=== PATIENT | male | born 2005 | race Caucasian/White ===

== ENCOUNTER 2025-07-04 21:31 | Emergency (ER) | payer BC, SELFPAY ==
[2025-07-04] VITALS (18 sets, daily range): BP systolic 142; BP diastolic 86; PULSE 82; RESP 18; TEMP 37.4; O2SAT 97–99; BMI 22.0
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
--- OUTSIDE RECORDS SUMMARY | 2025-07-04 22:24 | XMS_ITS | Encounter Summary ---
Author Organization [facility] Address [address] [place] [address] Care Team Providers Care Weights And Measures Inspector Name Role Phone Quang Neville MD Primary Care Provider [phone] Encounter Details Date Type Department Care Team (Late st Contact Info) Description 10/20/2017 [facility] Conversion Encounter [facility] CONVERSION Moiz Gregory MD Social History Tobacco Use Types Packs/Day Years Used Date Smoking Tobacco: Never Assessed Sex and Gender Information Value Date Recorded Sex Assigned at Male 09/24/2022 4:59 PM ELECTRONICS REPAIR TECHNICIAN Legal Sex Male 4:59 PM ELECTRONICS REPAIR TECHNICIAN Gender Identity Not on file Sexual Orientation Not on file documented as of this encounter Progress Notes * Moiz Gregory MD - 10/20/2017 3:51 PM EST [facility] [address] [place] [facility] [place] [address] PEDIATRICS * Patient: Yaya Maggie Pisano MR#: [id number] Date of Visit: 10/20/2017 3:15 PM : 2005 Visit Type: Office Visit Age: 12 years 1 month Rendering Physician: Moiz Gregory MD Gender: Male Primary Care Provider: Quang Neville MD Historian: mother Assessment/Plan # Detail Type Description 1. Assessment Injury of toe on left foot, initial encounter (S99.922A), Acute. Provider Plan Assume it's broken & avoid anything that would cause further injury. Don't walk around barefoot. If it's a fracture, it's not likely to feel much better for at least 1wk. If mom decides she wants an X-ray, call & tell us why. Call sooner if it looks like it's getting worse/infected. Intake Comments Injured L. second toe 10/19. Bruised, swollen and tender the touch,. 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 Injured L. 2nd toe 10/19 running in socks to door & smashed it on door jam. Played on it all day& then hurt later in the day. Started looking worse last night. Swollen & tender to the touch w/ ecchymosis. Physical Exam Exam Findings Details Constitutional Normal No acute distress. Well nourished. Well developed. Medications Patient is on no medications. Allergies No known allergies. Scribe Signature and Attestation By signing my name below, I, Devante Hall, attest that this documentation has been prepared under the direction and in the presence of Moiz Gregory MD. Electronically Signed: Devante Arcosibbret. 10/20/2017. 3:51 PM. Provider Attestation IMoiz MD, personally performed the services described in this documentation. All medical record entries made by the scribe were at my direction and in my presence. I have reviewed the chart and discharge instructions and agree that the record reflects my personal performance and is accurate and complete. TRONICS REPAIR TECHNICIAN TRONICS REPAIR TECHNICIAN documented in this encounter Plan of Treatment Not on file documented as of this encounter Visit Diagnoses Not on filedocumented in this encounter Care Teams Weights And Measures Inspector Relationship Specialty Start Date End Date Quang Neville MD [address] [place] [id number] PCP - General Pediatrics 11/10/22 documented as of this encounter
--- OUTSIDE RECORDS SUMMARY | 2025-07-04 22:24 | XMS_ITS | Encounter Summary ---
Author Organization [facility] Address [address] [place] [address] Care Team Providers Care Operator And Truck Driver Name Role Phone Quang Neville MD Primary Care Provider [phone] Encounter Details Date Type Department Care Team (Late st Contact Info) Description 05/19/2025 Orders Only Pediatrics - [address] [facility] [address] [facility] [place] [place] [address] Te Sales PA-C [address] [facility] [place] [place] [address] Fever, unspecified fever cause Social History Tobacco Use Types Packs/Day Years Used Date Smoking Tobacco: Never Smokeless Tobacco: Never Alcohol Use Standard Drinks/Week Comments Never 0 (1 standard drink = 0.6 oz pur e alcohol) PHQ-2 Answer Date Recorded PHQ-2 SCORE 0 01/05/2023 Sex and Gender Information Value Date Recorded Sex Assigned at Male 09/24/2022 4:59 PM DIRECTOR OF PHYSIOTHERAPY SERVICES Legal Sex Male 4:59 PM DIRECTOR OF PHYSIOTHERAPY SERVICES Gender Identity Not on file Sexual Orientation Not on file documented as of this encounter Plan of Treatment Not on file documented as of this encounter Procedures Procedure Name Priority Date/Time Associated Diagnosis Comments RESPIRATORY PANEL BY PCR Routine 05/19/2025 3:35 PM EDT Fever, unspecified fever cause documented in this encounter Results * (ABNORMAL) RESPIRATORY PANEL BY PCR (05/19/2025 3:35 PM EDT) Source: Nasopharyngeal swab 05/20/2025 1:48 AM EDT [facility] Adenovirus NOT DETECTED 05/20/2025 1:48 AM EDT [facility] SARS COV2 NOT DETECTED 05/20/2025 1:48 AM EDT [facility] Coronavirus 229E NOT DETECTED 2024 1:48 AM EDT [facility] Coronavirus HKU1 NOT DETECTED 2024 1:48 AM EDT [facility] Coronavirus NL63 NOT DETECTED 2024 1:48 AM EDT [facility] Coronavirus OC43 NOT DETECTED 2024 1:48 AM EDT [facility] Human Metapneumovirus NOT DETECTED 05/20/2025 1:48 AM EDT [facility] Human Rhino/Enterovirus DETECTED(A) 05/20/2025 1:48 AM EDT [facility] Influenza A NOT DETECTED 05/20/2025 1:48 AM EDT [facility] Influenza B NOT DETECTED 05/20/2025 1:48 AM EDT [facility] Parainfluenza 1 NOT DETECTED 025 1:48 AM EDT [facility] Parainfluenza 2 NOT DETECTED 025 1:48 AM EDT [facility] Parainfluenza 3 NOT DETECTED 025 1:48 AM EDT [facility] Parainfluenza 4 NOT DETECTED 025 1:48 AM EDT [facility] RSV NOT DETECTED 05/20/2025 1:48 AM EDT [facility] Bordetella pertussis NOT DETECTED 05/20/2025 1:48 AM EDT [facility] Bordetella parapertussis NOT DETECTED 05/20/2025 1:48 AM EDT [facility] Chlamydophilia pneumonia NOT DETECTED 05/20/2025 1:48 AM EDT [facility] Mycoplasma pneumoniae NOT DETECTED 05/20/2025 1:48 AM EDT [facility] Comment: Testing is performed using the [employer] FimArray Respiratory Panel 2.1. This assay has been granted [place] authorization by the U.S. Food and Drug Administration (FDA) for simultaneous qualitative detection and differentiation of nucleic acids from multiple respiratory and bacterial organisms, including the SARS-CoV-2 virus. Negative result do not preclude infection and should not be used as the sole basis for patient management decisions. Negative results must be combined with clinical observations, patient history, and epidemiological information. PERFORMED BY:[employer], [id number] [place] [address] Other NASOPHARYNGEAL SWAB / Unknown 05/19/2025 3:35 PM EDT 05/19/2025 3:35 PM EDT [facility]ative [facility] 05/20/2025 1:48 AM EDT Te Sales PA-C LABORATORY Final Result [employer] [facility] [place] [address] documented in this encounter Visit Diagnoses Diagnosis Fever, unspecified fever cause documented in this encounter Care Teams Operator And Truck Driver Relationship Specialty Start Date End Date Quang Neville MD [address] [place] [address] PCP - General Pediatrics 11/10/22 documented as of this encounter
--- OUTSIDE RECORDS SUMMARY | 2025-07-04 22:24 | XMS_ITS | Encounter Summary ---
Author Organization [facility] Address [address] [place] [address] Care Team Providers Care Distributing Clerk Name Role Phone Quang Neville MD Primary Care Provider [phone] Encounter Details Date Type Department Care Team ([facility] st Contact Info) Description 05/28/2018 Duly Conversion Encounter Pediatrics - [address] [facility] [address] [facility] [address] Дмитрий Bustos NP [address] [facility] [place] [address] Social History Tobacco Use Types Packs/Day Years Used Date Smoking Tobacco: Never Assessed Sex and Gender Information Value Date Recorded Sex Assigned at Male 09/24/2022 4:59 PM 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 The following is a summary of today's visit, including instructions and other important information we hope you find helpful. Reason(s) for Today's Visit well visit. Today's Plan & Instructions Detail Type Diagnosis & Plan Assessment Encntr for routine child health exam w/o abnormal findings (Z00.129). Patient Plan Anticipatory guidance regarding physical growth and development, social and academic competence, emotional well-being, risk reduction, violence and injury prevention.. Plan Orders He is to schedule a follow-up visit with Quang Neville MD for Well child visit 1 Year Additional Instructions Patient education/instruction provided. Vitals Recorded at this Visit BP mm/Hg Pulse/min Resp/min Temp F Height (Total in.) Weight (lbs.) Weight (oz.) BMI 102/60 62.50 102.20 18.39 In office Procedures Performed at this Visit Status Order Quantity Dx Interpretation Result Details Completed Patient education/instruction provided. Appointments, Orders, & Referrals Follow-Up Appointments Follow-up Appointment follow-up visit with Quang Neville MD for Well child visit 1 Year follow-up visit with Quang Neville MD for Well child visit 1 Year Other Health Information Current Allergies Medication Name Ingredient Intolerance Reaction NO KNOWN ALLERGIES N Current Immunizations Status Immunization Date Comments Completed Human Papillomavirus 9-valent vaccine 05/28/2018 11:12:08 AM Completed MCV4 05/13/2017 4:14:23 PM Completed Tdap 05/13/2017 4:14:48 PM Completed Influenza virus vaccine, injectable, quadrivalent, split virus, preservative free, 3 years or older Fluarix, Flulaval or Fluzone Quad 09/24/2009 12:00:00 AM Completed Influenza virus vaccine, injectable, quadrivalent, split virus, preservative free, 3 years or older Fluarix, Flulaval or Fluzone Quad 08/13/2010 12:00:00 AM Completed Influenza virus vaccine, injectable, quadrivalent, split virus, preservative free, 3 years or older Fluarix, Flulaval or Fluzone Quad 08/09/2009 12:00:00 AM Completed Influenza virus vaccine, injectable, quadrivalent, split virus, preservative free, 3 years or older Fluarix, Flulaval or Fluzone Quad 07/13/2008 12:00:00 AM Completed Influenza virus vaccine, injectable, quadrivalent, split virus, preservative free, 3 years or older Fluarix, Flulaval or Fluzone Quad 07/27/2007 12:00:00 AM Completed Influenza virus vaccine, injectable, quadrivalent, split virus, preservative free, 3 years or older Fluarix, Flulaval or Fluzone Quad 09/15/2006 12:00:00 AM Completed Influenza virus vaccine, injectable, quadrivalent, split virus, preservative free, 3 years or older Fluarix, Flulaval or Fluzone Quad 07/09/2006 12:00:00 AM Completed Pneumococcal, PCV-13 09/15/2006 12:00:00 AM Completed Pneumococcal, PCV-13 03/17/2006 12:00:00 AM Completed Pneumococcal, PCV-13 01/20/2006 12:00:00 AM Completed Pneumococcal, PCV-13 2005 12:00:00 AM Completed Polio, Inactive 10/11/2009 12:00:00 AM Completed Hib (PRP-OMP) 12/15/2006 12:00:00 AM Completed Hib (PRP-OMP) 03/17/2006 12:00:00 AM Completed Hib (PRP-OMP) 01/20/2006 6:05:48 PM Completed Hib (PRP-OMP) 2005 12:00:00 AM Completed Polio, Inactive 03/16/2007 4:38:44 PM Completed Polio, Inactive 01/20/2006 12:37:48 PM Completed DTaP (younger than 7 yrs) 10/11/2009 12:00:00 AM Completed DTaP (younger than 7 yrs) 03/16/2007 12:00:00 AM Completed DTaP (younger than 7 yrs) 07/17/2006 12:00:00 AM Completed DTaP (younger than 7 yrs) 01/20/2006 12:00:00 AM Completed DTaP- hepatitis B and poliovirus 2005 12:00:00 AM Completed Hep B (ped/adol, 3 dose) 06/23/2006 12:00:00 AM Completed Hep B (ped/adol, 3 dose) 2005 12:00:00 AM Completed Hep B (ped/adol, 3 dose) 2005 12:00:00 AM Completed MMR 10/11/2009 12:00:00 AM Completed Varicella 10/11/2009 12:00:00 AM Completed MMR 12/15/2006 12:00:00 AM Completed Varicella 09/15/2006 12:00:00 AM Completed Hep A (ped/adol, 2 dose) 10/08/2013 12:00:00 AM Completed Hep A (ped/adol, 2 dose) 02/25/2013 12:00:00 AM The [facility], [facility] complies with applicable Federal civil rights laws and does not discriminate on the basis of race, color, national origin, age, disability, or sex. * Дмитрий Bustos NP - 05/28/2018 11:14 [place] [address] [email or web address] Patient: Yaya Pisano MR#: [id number] Date of Visit: 05/28/2018 11:00 AM : 2005 Visit Type: Well child Age: 12 years 8 months Rendering Physician: Дмитрий Bustos NP Gender: Male Primary Care Provider: Quang Neville MD Historian: father Assessment/Plan # Detail Type Description 1. Assessment Encntr for routine child health exam w/o abnormal findings (Z00.129). Patient Plan Anticipatory guidance regarding physical growth and development, social and academic competence, emotional well-being, risk reduction, violence and injury prevention. Plan Orders He is to schedule a follow-up visit with Quang Neville MD for Well child visit 1 Year Office Procedures Completed (this encounter) Status Order Quantity Dx Interpretation Result Details Completed Patient education/instruction provided. Immunizations Status Date Description Exp Date Lot # Workers Compensation Claims Assistant Completed 05/28/2018 Human Papillomavirus 9-valent vaccine 07/13/2020 11:11:22 AM [id number] [employer] Intake Comments: Dad has no concerns He is attending [employer] school and is in the 7th grade. History of Present Illness This 12 year 8 month old male presents for well visit. 1. well visit There are no acute concerns today. Diet: Appropriate food intake for age. 3 meals plus snacks -drinks 2% milk Sleep: Sleeping normally for age. Elimination: Having normal urine and stools. 7th grader at [employer] -plans to run [employer] Does not wear glasses Dentist every 6 months Review of Systems System Neg/Pos Details Constitutional Negative Decreased activity and fever. ENMT Negative Ear drainage and hearing loss. Eyes Negative Eye discharge and vision loss. Respiratory Negative Cough, dyspnea and wheezing. Cardio Negative Cool extremity and irregular heartbeat/palpitations. GI Negative Abdominal pain, constipation, decreased appetite, diarrhea and vomiting. Negative Dysuria, hematuria, penile discharge and polyuria. Endocrine Negative Abnormal sleep pattern and polydipsia. Psych Negative Inappropriate interaction and inconsolable. Integumentary Negative Pruritus and rash. Asif/Lymph Negative Easy bleeding and easy bruising. Allergic/Immuno Negative Environmental allergies and food allergies. Vital Signs BP (mm/hg) Pulse (min) Resp (min) Temp (F) Ht (ft) Ht (in) Ht (cm) Ht (%) Wt (lb) Wt (oz) Wt (%) BMI (kg/m2) BSA (m2) O2 (Sat%) 102/60 5.0 2.50 158.75 73 102.20 59 18.39 Date Time Measured by 05/28/2018 10:54 AM Shaylee Ramirez MA Physical Exam Exam Findings Details Back/Spine Normal Inspection - no abnormality. Lateral - No Scoliosis. Constitutional * Level of distress - pleasant. Constitutional Normal Well nourished. Well developed. Head/Face Normal Skull - Normal. Eyes Normal Conjunctiva - Right: Normal, Left: Normal. Sclera - Right: Normal, Left: Normal. Pupil - Right: Normal, Left: Normal. Ocular muscles - Right: Normal, Left: Normal. Ears Normal Inspection - Right: Normal, Left: Normal. Canal - Right: Normal, Left: Normal. TM - Right: Normal, Left: Normal. Nasopharynx Normal Nares - Right: Normal, Left: Normal. Nasal mucosa - Normal. Lips/teeth/gums - Normal. Palate & uvula - Normal. Tonsils - Normal. Oropharynx - Normal. Nose/Mouth/Throat Normal Nares - Right: Normal, Left: Normal. Nasal Mucosa - Normal. Lips/teeth/gums - Normal. Palate & uvula - Normal. Tonsils - Normal. Oropharynx - Normal. Neck Exam Normal Neck inspection- Normal. Neck ROM - Normal. Lymph Detail Normal Axillary. Breast Normal Lymph nodes - Normal. Respiratory Normal Auscultation - Normal. Effort - Normal. Cardiovascular Normal Heart rate - Regular rate. Rhythm - Regular. Murmurs - None. Vascular Normal Pulses - Radial: Normal. Abdomen Normal Inspection - Normal. Auscultation - Normal. Palpation - Normal. No abdominal tenderness. Genitourinary Normal Penis - Normal. Testes - Normal. Not circumcised. Male marisabel stage - II. Skin Normal General inspection - Normal. Back/Spine * Back inspection - no abnormality. Back/Spine Normal Lateral - No scoliosis. Musculoskeletal Normal Visual overview of all four extremities is normal. Extremity Normal No cyanosis. Neurological Normal Level of consciousness - Normal. Cranial nerves II-XII - Normal. Sensory - Normal. Balance and gait - Normal. DTRs - Normal. Psychiatric Normal Behavior appropriate for age. Medications (Reconciled/Reviewed) Medications reconciled today. Patient is on no medications. Allergies No known allergies. Medication Ingredient Reaction Comment Intolerance NO KNOWN ALLERGIES N Encounter submitted for review by Дмитрий Bustos NP on 05/28/2018 11:14 AM. Visit details reviewed and approved by supervising physician Quang Neville MD on 05/28/2018 at 1:03 PM Document generated by: Quang Neville MD 05/28/2018 01:04 PM * Дмитрий Bustos NP - 05/28/2018 10:59 AM EDT The [address] [address] [email or web address] Patient: Yaya Pisano MR#: [id number] Date of Visit: 05/28/2018 11:00 AM : 2005 Visit Type: Well child Age: 12 years 8 months Rendering Physician: Дмитрий Bustos NP Gender: Male Primary Care Provider: Quang Neville MD Historian: mother INTAKE NOTE Intake Comments: Dad has no concerns He is attending [employer] and is in the 7th grade. History of Present Illness 1. Well Visit Vital Signs Height: Ht ft Ht in Ht cm % Height Position Measured 5.0 2.50 158.75 73 Standing 05/28/2018 Weight/BSA/BMI: Wt lb Wt oz Wt kg Wt % Context BMI kg/m2 BMI % BSA m2 102.20 46.357 59 dressed without shoes 18.39 52 Blood Pressure: BP mm/Hg Position Side Site Method Cuff Size 102/60 sitting left arm manual adult Date Time Measured by 05/28/2018 10:54 AM Shaylee Ramirez MA Medications (Reconciled/Reviewed) Medications reconciled today. Patient is on no medications. Allergies: No known allergies. Medication Ingredient Reaction Comment Intolerance NO KNOWN ALLERGIES N Past Medical/Surgical History 10/25/2017 Disease/Disorder Onset Management Date dental exam 11/2014 [facility] 12[facility] Mendez dentist December 2015 Interim History Type Reason Management Date Admit Discharge Outcome Hospital Comment DDS March 2018 Family History 10/25/2017 Document generated by: Shaylee Ramirez MA 05/28/2018 documented in this encounter Plan of Treatment Not on file documented as of this encounter Visit Diagnoses Not on filedocumented in this encounter Care Teams Distributing Clerk Relationship Specialty Start Date End Date Quang Neville MD [address] [place] [address] PCP - General Pediatrics 11/10/22 documented as of this encounter
--- OUTSIDE RECORDS SUMMARY | 2025-07-04 22:24 | XMS_ITS | Encounter Summary ---
Author Organization [facility] Address [address] [place] [address] Care Team Providers Care Paste Worker Name Role Phone Quang Neville MD Primary Care Provider [phone] Encounter Details Date Type Department Care Team ([facility] st Contact Info) Description 11/03/2019 Duly Conversion Encounter Pediatrics - [address] 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 Assessment Viral URI (J06.9). Patient Plan Discussed nature of illness. Advised to use Tylenol or ibuprofen as needed for fever or discomfort. May use OTC cough and cold medicine for cough and congestion. Expect resolution over 5-7 days. Call for worsening or prolonged symptoms. Office Procedures Completed (this encounter) Order Details Reason Side Interpretation Result Initial Treatment Date Region Patient education/instruction provided. Intake Comments: Cough (raspy), PND & ST x 2 days RN x 12hrs Fever 3 days ago x24hrs, broke from 2 days and then had one this morning History of Present Illness This 14 year 1 month old male presents for Cough. 1. Cough Onset: 3 days ago. Severity: moderate. The patient describes the cough as hacking and non-productive. It occurs persistently. The problem has not changed. There are no aggravating factors. There areno relieving factors. Associated symptoms include fever, nasal congestion and rhinorrhea. Review of Systems System Neg/Pos Details Constitutional Positive Fever. ENMT Positive Nasal congestion, Rhinorrhea. Physical Exam Exam Findings Details Constitutional Normal No acute distress. Well nourished. Well developed. Eyes Normal Conjunctiva - Right: Normal, Left: Normal. Ears Normal TM - Right: Normal, Left: Normal. Nasopharynx * Nares - Right: discharge - clear, Left: discharge - clear. Nasopharynx Normal Nasal mucosa - Normal. Lips/teeth/gums - Normal. Palate & uvula - Normal. Tonsils - Normal. Oropharynx - Normal. Neck Exam Normal Neck inspection- Normal. Respiratory Normal Auscultation - Normal. Cough - Absent. Effort - Normal. Cardiovascular Normal Heart rate - Regular rate. Rhythm - Regular. Murmurs - None. Medications (Reconciled/Reviewed) Patient is on no medications. Allergies No known allergies. Medication Ingredient Reaction Comment Intolerance NO KNOWN ALLERGIES N Document generated by: Quang Neville MD 11/04/2019 08:24 AM INE MOVER INE MOVER * Quang Neville MD - 11/03/2019 11:26 AM EST [facility] [address] [facility] [place] [address] [email or web address] Patient: Yaya Pisano MR#: [id number] Date of Visit: 11/03/2019 11:05 AM : 2005 Visit Type: Office Visit Age: 14 years 1 month Rendering Physician: Quang eNville MD Gender: Male Primary Care Provider: Quang Neville MD INTAKE NOTE Intake Comments: Cough (raspy), PND & ST x 2 days RN x 12hrs Fever 3 days ago x24hrs, broke from 2 days and thenhad one this morning History of Present Illness 1. Cough Medications (Reconciled/Reviewed) Patient is on no medications. Allergies: No known allergies. Medication Ingredient Reaction Comment Intolerance NO KNOWN ALLERGIES N Past Medical/Surgical History Disease/Disorder Onset Management Date dental exam 11/2014 [facility] 12/2014 school DDS March [address] Mendez dentist December 2015 [facility] 2018 office Social History: Demographics: Preferred language is Emirati. Document generated by: Natalya Galindo MA 11/03/2019 INE MOVER INE MOVER documented in this encounter Plan of Treatment Not on file documented as of this encounter Visit Diagnoses Not on filedocumented in this encounter Care Teams Paste Worker Relationship Specialty Start Date End Date Quang Neville MD [address] [place] [facility] [place] [address] PCP - General Pediatrics 11/10/22 documented as of this encounter
--- OUTSIDE RECORDS SUMMARY | 2025-07-04 22:24 | XMS_ITS | Encounter Summary ---
Author Organization [facility] and Care Address [address] [place] [address] Care Team Providers Care Hand Tacker Name Role Phone Quang Neville MD Primary Care Provider [phone] Encounter Details Date Type Department Care Team ([facility] st Contact Info) Description 05/13/2017 Duly Conversion Encounter Pediatrics - [address] [facility] [address] [facility] [place] [address] Дмитрий Bustos NP [address] [facility] [facility] Social History Tobacco Use Types Packs/Day Years Used Date Smoking Tobacco: Never Assessed Sex and Gender Information Value Date Recorded Sex Assigned at Male 09/24/2022 4:59 PM 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 [place] [address] [email or web address] Patient: Yaya Pisano MR#: [id number] Date of Visit: 05/13/2017 4:15 PM : 2005 Visit Type: Well child Age: 11 years 7 months Rendering Physician: Дмитрий Bustos NP Gender: [...] Well child visit 1 Year Office Procedures Completed: (this encounter) Status Order Quantity Dx Interpretation Result Details Completed Patient education/instruction provided. Immunizations Status Date Description Exp Date Lot # Zinc Plate Grainer Completed 05/13/2017 MCV4 09/05/2018 4:14:07 PM [id number] sanofi pasteur Completed 05/13/2017 Tdap 05/21/2019 4:14:34 PM [id number] [employer] Intake Comments Well Exam No questions or concerns History of Present Illness This 11 year 7 month old male presents for Well Visit. 1. Well Visit There are no acute concerns today. Diet: Appropriate food intake for age. Sleep: Sleeping normally for age. Elimination: Having normal urine and stools. 6th grader at [employer] and swimming Goes to the dentist every 6 months Review of Systems System Neg/Pos Details Constitutional Negative Decreased activity and fever. ENMT Negative Ear drainage and hearing loss. Eyes Negative Eye discharge. Respiratory Negative Cough, dyspnea and wheezing. Cardio Negative Cool extremity. GI Negative Constipation, decreased appetite, diarrhea and vomiting. Negative Dysuria, hematuria and polyuria. Endocrine Negative Abnormal sleep pattern, polydipsia and polyphagia. Psych Negative Inappropriate interaction and inconsolable. Integumentary Negative Pruritus and rash. Asif/Lymph Negative Easy bleeding and easy bruising. Allergic/Immuno Negative Environmental allergies and food allergies. Vital Signs BP mm/hg Pulse min Resp min Temp f Ht (ft) Ht (in) Ht (cm) Ht % Wt (lb) Wt (oz) Wt % BMI kg/m2 BSA m2 O2 Sat% 100/68 5.0 0.00 152.40 76 95.80 70 18.71 Date Time Measured by 05/13/2017 4:06 PM Concepción Lind MA Physical Exam Exam Findings Details Back/Spine Normal Inspection - no abnormality. Lateral - No Scoliosis. Constitutional Normal No acute distress. Well nourished. Well developed. Head/Face Normal Skull - Normal. Eyes Normal Conjunctiva - Right: Normal, Left: Normal. Sclera - Right: Normal, Left: Normal. Pupil - Right: Normal, Left: Normal. Ocular muscles - Right: Normal, Left: Normal. Ears Normal Inspection - Right: Normal, Left: Normal. Canal - Right: Normal, Left: Normal. TM - Right: Normal, Left: Normal. Nose/Mouth/Throat Normal Nares - Right: Normal, Left: Normal. Nasal Mucosa - Normal. Lips/teeth/gums - Normal. Palate & uvula - Normal. Tonsils - Normal. Oropharynx - Normal. Neck Exam Normal Inspection - Normal. Range of motion - Normal. Lymph Detail Normal Axillary. Breast Normal Lymph nodes - Normal. Respiratory Normal Auscultation - Normal. Effort - Normal. Cardiovascular Normal Heart rate - Regular rate. Rhythm - Regular. Murmurs - None. Vascular Normal Pulses - Femoral: Normal. Abdomen Normal Inspection - Normal. Auscultation - Normal. Anterior palpation - Normal. No abdominal tenderness. Genitourinary Normal Penis - Normal. Testes - Normal. Skin Normal Inspection - Normal. Musculoskeletal Normal Visual overview of all four extremities is normal. Extremity Normal No Cyanosis. Neurological Normal Level of consciousness - Normal. Cranial nerves - Cranial nerves II through XIIgrossly intact. Sensory - Normal. Balance & gait - Normal. DTRs - Normal. Psychiatric Normal Behavior is appropriate for age. Medications (Reconciled/Reviewed) Patient is on no medications. Allergies No known allergies. Medication Ingredient Reaction Comment Intolerance NO KNOWN ALLERGIES N Encounter submitted for review by Дмитрий Bustos NP on 05/13/2017 5:09 PM. Visit details reviewed and approved by supervising physician Quang Neville MD on 05/14/2017 at 8:57 AM Document generated by: Quang Neville MD 05/14/2017 08:57 AM * Дмитрий Bustos NP - 05/13/2017 4:12 PM EDT [facility] [address] [place] [address] [email or web address] Patient: Yaya Pisano MR#: [id number] Date of Visit: 05/13/2017 4:15 PM : 2005 Visit Type: Well child Age: 11 years 7 months Rendering Physician: Дмитрий Bustos NP Gender: Male Primary Care Provider: Quang Neville MD Historian: mother INTAKE NOTE Intake Comments: Well Exam No questions or concerns History of Present Illness This 11 year 7 month old male presents for Well Visit. 1. Well Visit There are no acute concerns today. Diet: Appropriate food intake for age. Sleep: Sleeping normally for age. Elimination: Having normal urine and stools. 6th grader at [employer] and swimming Goes to the dentist every 6 months Review of Systems System Neg/Pos Details Constitutional Negative Decreased activity and fever. ENMT Negative Ear drainage and hearing loss. Eyes Negative Eye discharge. Respiratory Negative Cough, dyspnea and wheezing. Cardio Negative Cool extremity. GI Negative Constipation, decreased appetite, diarrhea and vomiting. Negative Dysuria, hematuria and polyuria. Endocrine Negative Abnormal sleep pattern, polydipsia and polyphagia. Psych Negative Inappropriate interaction and inconsolable. Integumentary Negative Pruritus and rash. Asif/Lymph Negative Easy bleeding and easy bruising. Allergic/Immuno Negative Environmental allergies and food allergies. Vital Signs Height: Ht ft Ht in Ht cm % Height Position Measured 5.0 0.00 152.40 76 01/11/2015 Weight/BSA/BMI: Wt lb Wt oz Wt kg Wt % Context BMI kg/m2 BMI % BSA m2 95.80 43.454 70 18.71 67 Blood Pressure: BP mm/Hg Position Side Site Method Cuff Size 100/68 Date Time Measured by 05/13/2017 4:06 PM Concepción Lind MA Medications (Reconciled/Reviewed) Patient is on no medications. Allergies: No known allergies. Medication Ingredient Reaction Comment Intolerance NO KNOWN ALLERGIES N Office Procedures Completed this Visit: Status Order Quantity Dx Interpretation Result Details Completed Patient education/instruction provided. Immunizations Administered this Visit: Status Date Description Exp Date Lot # Zinc Plate Grainer MCV4 Tdap Past Medical/Surgical History: Disease/Disorder Onset Management Date dental exam 11/2014 vision 12/[address] [facility]endez dentist December 2015 Interim History: Type Reason Management Date Admit Discharge Outcome Hospital Comment [facility] Dentist December 2016 Document generated by: Concepción Lind MA 05/13/2017 documented in this encounter Plan of Treatment Not on file documented as of this encounter Visit Diagnoses Not on filedocumented in this encounter Care Teams Hand Tacker Relationship Specialty Start Date End Date Quang Neville MD [address] [place] [address] PCP - General Pediatrics 11/10/22 documented as of this encounter
--- OUTSIDE RECORDS SUMMARY | 2025-07-04 22:24 | XMS_ITS | Encounter Summary ---
Author Organization [facility] and [facility] Address [address] [place] [address] Care Team Providers Care Dye House Wheel Operator Name Role Phone Quang Neville MD Primary Care Provider [phone] Encounter Details Date Type Department Care Team ([facility] st Contact Info) Description 05/25/2017 Duly Conversion Encounter Pediatrics - [address] [facility] [address] [facility] [place] [address] Quang Neville MD [address] [facility] [place] [phone] Social History Tobacco Use Types Packs/Day Years Used Date Smoking Tobacco: Never Assessed Sex and Gender Information Value Date Recorded Sex Assigned at Male 09/24/2022 4:59 PM IT SECURITY ADMINISTRATOR Legal Sex Male 4:59 PM IT SECURITY ADMINISTRATOR Gender Identity Not on file Sexual Orientation Not on file documented as of this encounter Progress Notes * Quang Neville MD - 05/26/2017 10:54 AM EDT [facility] [address] [place] [facility] [place] [address] - [employer] TELEPHONE MESSAGE Rendering MD: Quang Neville MD Patient Name: Yaya Pisano Age: 11 Years MR#: [id number] : 2005 Date of Call: 05/25/2017 Encounter Date: 05/25/2017 4:28 PM Time of Call: 4:28 PM Staffer: Juhi Vila Work Phone: Alt. Phone: * Preferred Pharmacy: Spoke with: (father) Rupert. Activities Date Time Employee Activity 05/26/2017 10:54:16 Dana Quigley MA Waiting to see if Dr. Gusman will fill out form. Dr. Neville out today. Will fax once it's signed. 05/25/2017 16:31:50 Juhi Vila Dad brought in sports form from [employer] [facility] [place]. Last well visit 05/13/17. Please fax to school at [phone]. Dad request if it could be there by 2 pm tomorrow, I advised it normally is 24 - 48 hours. Call Disposition Telephone Call is completed. Completed 05/26/2017 at 10:54 AM by Dana Quigley MA Task History Date Time User Task History 05/26/2017 10:54 AM Dana Quigley MA TELEPHONE MESSAGE Marked As Complete documented in this encounter Plan of Treatment Not on file documented as of this encounter Visit Diagnoses Not on filedocumented in this encounter Care Teams Dye House Wheel Operator Relationship Specialty Start Date End Date Quang Neville MD [address] [place] [phone] PCP - General Pediatrics 11/10/22 documented as of this encounter
--- OUTSIDE RECORDS SUMMARY | 2025-07-04 22:24 | XMS_ITS | Encounter Summary ---
Author Organization [facility] Address [address] [place] [address] Care Team Providers Care Lock Technician Name Role Phone Quang Neville MD Primary Care Provider [phone] Encounter Details Date Type Department Care Team ([facility] st Contact Info) Description 01/11/2015 Duly Conversion Encounter Pediatrics - [address] [facility] [address] [place] [place] [address] Quang Neville MD [address] [place] [facility] [place] [address] Social History Tobacco Use Types Packs/Day Years Used Date Smoking Tobacco: Never Assessed Sex and Gender Information Value Date Recorded Sex Assigned at Male 09/24/2022 4:59 PM PROVIDER ENGAGEMENT EXECUTIVE Legal Sex Male 4:59 PM PROVIDER ENGAGEMENT EXECUTIVE Gender Identity Not on file Sexual Orientation Not on file documented as of this encounter Progress Notes * Quang Neville MD - 01/11/2015 2:23 PM EDT [facility] [address] [place] [facility] [address] - [email or web address] Patient: Yaya Pisano MR#: [id number] Office Visit Date: 01/11/2015 1:55 PM Date of : 2005 PCP: Quang Neville MD Age: 9 years 3 months Physician: Quang Neville MD Gender: Male Historian: mother Visit Type: Well Visit Assessment/Plan # Detail Type Description 1. Assessment Routin Child Health Exam (V20.2). Patient Plan Anticipatory guidance given regarding school, development and mental health, nutritionand physical activity, oral health and safety. Plan Orders He is to schedule a follow-up visit with Quang Neville MD for Well child visit 1 Year. Immunizations Status Date Description Exp Date Lot # Flight Control Manager Completed 02/25/2013 Hep A (ped/adol, 2 dose) Completed 10/08/2013 Hep A (ped/adol, 2 dose) Completed 12/15/2006 MMR Completed 09/15/2006 Varicella Completed 10/11/2009 MMR Completed 10/11/2009 Varicella Completed 2005 Hep B (ped/adol, 3 dose) Completed 2005 Hep B (ped/adol, 3 dose) Completed 06/23/2006 Hep B (ped/adol, 3 dose) Completed 2005 DTaP- hepatitis B and poliovirus Completed 01/20/2006 DTaP (younger than 7 yrs) Completed 07/17/2006 DTaP (younger than 7 yrs) Completed 03/16/2007 DTaP (younger than 7 yrs) Completed 10/11/2009 DTaP (younger than 7 yrs) Completed 01/14/2006 Polio, Inactive Completed 03/16/2007 Polio, Inactive Completed 2005 Hib (PRP-OMP) Completed 01/10/2006 Hib (PRP-OMP) Completed 03/17/2006 Hib (PRP-OMP) Completed 12/15/2006 Hib (PRP-OMP) Completed 10/11/2009 Polio, Inactive Intake Comments New pt. No concerns History of Present Illness This 9 year 3 month old male presents for well visit. 1. well visit Doing well, no concerns. Diagnostic Studies (Orderd and not completed in the past 6 months) Review of Systems System Neg/Pos Details Constitutional Negative Decreased activity, fever, irritability and lethargy. ENMT Negative Ear drainage and hearing loss. Eyes Negative Eye discharge and vision loss. Respiratory Negative Cough, dyspnea and wheezing. Cardio Negative Cool extremity and irregular heartbeat/palpitations. GI Negative Abdominal pain, constipation, decreased appetite, diarrhea and vomiting. Negative Dysuria, hematuria and polyuria. Endocrine Negative Abnormal sleep pattern and polydipsia. Psych Negative Inappropriate interaction and inconsolable. Integumentary Negative Pruritus and rash. Asif/Lymph Negative Easy bleeding and easy bruising. Allergic/Immuno Negative Animals at home, environmental allergies and food allergies. Reproductive Negative Vaginal discharge. Vital Signs Time BP mm/Hg Pulse /min Resp /min Temp F Ht ft Ht in Ht cm Wt lb Wt kg Weight % BMI kg/m2 BMI % BSA m2 O2 Sat% 1:49 PM 104/68 4.0 7.00 139.70 76.00 34.473 79 17.66 73 Time Measured by 1:49 PM Nini Hansen Physical Exam Exam Findings Details Constitutional Normal No acute distress. Well Nourished. Well developed. Head/Face Normal Skull - Normal. Eyes Normal Conjunctiva - Right: Normal, Left: Normal. Sclera - Right: Normal, Left: Normal. Pupil - Right: Normal, Left: Normal. Ocular muscles - Right: Normal, Left: Normal. Ears Normal Inspection - Right: Normal, Left: Normal. Canal - Right: Normal, Left: Normal. Nasopharynx Normal Nares - Right: Normal. Lips/teeth/gums - Normal. Palate & uvula - Normal. Tonsils - Normal. Oropharynx - Normal. Neck Exam * Neck inspection- Normal. Neck ROM - Normal. Lymph Detail Normal No palpable cervical, supraclavicular, or axillary adenopathy. Respiratory Normal Auscultation - Normal. Effort - Normal. Cardiovascular Normal Heart rate - Regular rate. Rhythm - Regular. Murmurs - None. Vascular Normal Pulses - Femoral: Normal. Abdomen Normal Inspection - Normal. Auscultation - Normal. Palpation - Normal. Genitourinary Normal Testes - Normal. No hernia. Male marisabel stage - I. Skin Normal General inspection - Normal. Back/Spine * Back inspection - no abnormality. Back/Spine Normal Lateral - No scoliosis. Musculoskeletal Normal Overall - Normal. Extremity Normal No cyanosis. Neurological Normal Cranial nerves II-XII - Normal. Sensory - Normal. Balance and gait - Normal. DTRs - Normal. Psychiatric Normal Oriented to time, place, person and situation Behavior appropriate for age. Family History Patient reports there is no relevant family history. Pediatric Social History (Detailed) Home Environment Water source: municipal. Water is chlorinated. Water is fluoridated. Dental Care Last dental visit was 11/13/2014. There are no dental concerns. .. Safety The patient uses bike/skating helmet. Uses seat belts. The home has smoke detectors. Carbon monoxide detector at home. The home has been treated for radon gas. No firearms at home. There is not a pool or spa at home. He/she does not have pets at home. Education Grade level in school is third grade. Nutrition History Usual intake: Patient has an adequate varied diet. Diet includes: 0.00 serving(s) of fruits daily; 0.00 serving(s) of vegetables daily; 0.00 serving(s) of bread/cereal daily; 0.00 serving(s) of proteins daily; 0.00 serving(s) of dairy/calcium daily. Medications (Reconciled/Reviewed) Patient is on no medications. Allergies Medication Ingredient Reaction Intolerance Comment NO KNOWN ALLERGIES N Document generated by: Natalya Galindo 01/11/2015 04:40 PM * Quang Neville MD - 01/11/2015 1:51 PM EDT The [address] [address] - [email or web address] Patient: Yaya Maggie Pisano MR#: [id number] Office Visit Date: 01/11/2015 1:55 PM Date of : 2005 PCP: Quang Neville MD Age: 9 years 3 months Physician: Quang Neville MD Gender: Male Historian: mother Visit Type: Well Visit Intake Comments New pt. No concerns History of Present Illness 1. Well Visit Diagnostic Studies (Orderd and not completed in the past 6 months) Review of Systems System Neg/Pos Details Allergic/Immuno Negative Animals at home. Vital Signs Height Time ft in cm Last Measured Height Position % Measured By 1:49 PM 4.0 7.00 139.70 01/11/2015 Standing 75 Nini Jackson Weight/BSA/BMI Time lb oz kg Context Weight % BMI kg/m2 BMI % BSA m2 Measured By 1:49 PM 76.00 34.473 dressed without shoes 79 17.66 73 Nini Jackson Blood Pressure Time BP mm/Hg Position Side Site Method Cuff Size Measured By 1:49 PM 104/68 sitting right Nini Jackson Medications (Reconciled/Reviewed) Patient is on no medications. Allergies No known allergies. Medication Ingredient Reaction Intolerance Comment NO KNOWN ALLERGIES N Past Medical/Surgical History Disease/disorder Onset Management Date dental exam 11/2014 vision 12/2014 school Family History Patient reports there is no relevant family history. Document generated by: Nini Hansen 01/11/2015 * Quang Neville MD - 01/10/2015 12:46 PM EDT The [address] [address] - [email or web address] TELEPHONE MESSAGE Call Type: Incoming Rendering MD: Quang Neville MD Patient Name: Yaya Pisano Age: 9 Years MR#: [id number] : 2005 Date of Call: 01/10/2015 Encounter Date: 01/10/2015 12:42 PM Time of Call: 12:42 PM Staffer: Caryn Leon Home Phone: * Work Phone: Alt. Phone: Preferred Pharmacy: Spoke with: (mother) Keisha. Activities Date Time Employee Activity 01/10/2015 12:46:29 Carynuday Qureshicorrine Mom returned call (see 01/11 appt details). Mom said she has medical record in her possession. Asking if she can email it today. Per instruction from nurse Mckee, I advised Mom to email the patient's immunization record & office note from pt's last physical/maría Mckee. Mom said she will email that today & bring the rest of her record with her tomorrow. Call Disposition Telephone Call is completed. Completed 01/10/2015 at 12:46 PM by Caryn Leon Task History Date Time User Task History 01/10/2015 12:46 PM Caryn Leon TELEPHONE MESSAGE Marked As Complete documented in this encounter Plan of Treatment Not on file documented as of this encounter Visit Diagnoses Not on filedocumented in this encounter Care Teams Lock Technician Relationship Specialty Start Date End Date Quang Neville MD [address] [place] [id number] PCP - General Pediatrics 11/10/22 documented as of this encounter
--- OUTSIDE RECORDS SUMMARY | 2025-07-04 22:24 | XMS_ITS | Encounter Summary ---
Author Organization Counts Include [facility] Address [address] [place] [address] Care Team Providers Care Account Support Rep Name Role Phone Quang Neville MD Primary Care Provider [phone] Encounter Details Date Type Department Care Team ([facility] st Contact Info) Description 05/30/2019 Duly Conversion Encounter Pediatrics - [address] [facility] [address] [place] [address] Quang Neville MD [address] [place] [place] [address] Social History Tobacco Use Types Packs/Day Years Used Date Smoking Tobacco: Never Assessed Sex and Gender Information Value Date Recorded Sex Assigned at Male 09/24/2022 4:59 PM OYSTER PICKER Legal Sex Male 4:59 PM OYSTER PICKER Gender Identity Not on file Sexual Orientation Not on file documented as of this encounter Progress Notes * Quang Neville MD - 05/30/2019 11:19 AM EDT [facility] [address] [facility] [place] [address] [email or web address] MESSAGE Rendering MD: Quang Neville MD Patient Name: Yaya Pisano Age: 13 year 8 month old MR#: [id number] : 2005 Date of Call: 05/30/2019 Time of Call: 8:15 AM Work Phone: Cell Phone: Alternate Preferred Pharmacy: [id number] Address: [facility] [address] ([address], [place] Spoke with: mother (Keisha Patricia) Time of call: 11:14 AM Call taken by: Aida Yeh Contact type: Call type: forms/records request Date Time Employee Concerns/Issues Detail 05/30/2019 8:15 AM Aida Yeh Urgency:within 24 hours. Dad dropped off a sports form. Please fax it to [employer] [facility] [employer] at [phone] when completed. Dad stated he would like it faxed today if possible, he is aware it can take up to 48 hours. 05/30/2019 10:05 AM Madalyn Murillo MA Urgency:within 24 hours. Form with PCP. 05/30/2019 11:14 AM Sejal Mendosa MA Urgency:within 24 hours. Form faxed. Document generated by: Sejal Mendosa MA documented in this encounter Plan of Treatment Not on file documented as of this encounter Visit Diagnoses Not on filedocumented in this encounter Care Teams Account Support Rep Relationship Specialty Start Date End Date Quang Neville MD [address] [place] [id number] PCP - General Pediatrics 11/10/22 documented as of this encounter
--- OUTSIDE RECORDS SUMMARY | 2025-07-04 22:24 | XMS_ITS | Clinical Summary ---
Author Organization [facility] Address [address] [place] [address] Care Team Providers Care Inspector Crystal Name Role Phone Quang Neville MD Primary Care Provider [phone] Allergies No known active allergies Medications No known medications Active Problems No known active problems Encounters Date Type Department Care Team Description 05/19/2025 10:00 AM EDT Office Visit Pediatrics - [address] [facility] [address] [place] [facility] [place] [address] Te Sales PA-C Acute viral syndrome (Primary Dx); Fever, unspecified fever cause 05/19/2025 Orders Only Pediatrics - [address] [facility] [address] [place] [facility] [place] [address] Te Sales PA-C Fever, unspecified fever cause from Last 3 Months Immunizations Immunization Administration Dates Next Due Afluria 0.5 ml MDV 3yr+ (29845) 07/27/2015 DTAP INFANRIX 10/11/2009, 7,07/17/2006,01/20 FLUZONE 6 months and older P FS 0.5 ml (91069) 07/23/2018,08/13/2010,09/24/2009,08/09,07/13/2008,07/27/2007,09/15/2006 ,07/09/2006 Flucelvax 0.5 ml Quad PRSV F ree 6m+ (40660) 07/19/2022 Fluvirin, 3 Years & >, Im 07/27/2015 HEP A,Ped/Adol,(2 Dose) 11/08/2013,10/08/2013, HEP B, Ped/Adol 06/23/2006,2005,2005 HIB 3 Dose Schedule 12/15/2006, 6,01/20/2006,11/25 Hpv Virus Vaccine 9 Karen Im 04/25/2019,05/28/2018 IPV 10/11/2009,03/16/2007,01/20/2006 Influenza 06/28/2020,07/14/2017,07/13/2014 MMR 10/11/2009,12/15/2006 Meningococcal B, OMV 01/05/2023,12/27/2021 Meningococcal-Menactra 12/27/2021,05/13/2017 Pneumococcal (Prevnar 13) 09/15/2006,,01/20/2006,11/25 TDAP 05/13/2017 Varicella 10/11/2009,09/15/2006 Social History Tobacco Use Types Packs/Day Years Used Date Smoking Tobacco: Never Smokeless Tobacco: Never Tobacco Cessation:Counseling Given: Not Answered Alcohol Use Standard Drinks/Week Comments Never 0 (1 standard drink = 0.6 oz pur e alcohol) PHQ-2 Answer Date Recorded PHQ-2 SCORE 0 01/05/2023 Sex and Gender Information Value Date Recorded Sex Assigned at Male 09/24/2022 4:59 PM ADAPTED PHYSICAL EDUCATION SPECIALIST Legal Sex Male 4:59 PM ADAPTED PHYSICAL EDUCATION SPECIALIST Gender Identity Not on file Sexual Orientation Not on file Last Filed Vital Signs Vital Sign Reading Time Taken Comments Blood Pressure 124/60 12/30/2024 10:52 AM EDT Pulse 115 05/19/2025 9:57 AM EDT Temperature 36.8 C (98.3 F) 05/19/2025 9:57 AM EDT Respiratory Rate - - Oxygen Saturation 98% 05/19/2025 9:57 AM EDT Inhaled Oxygen Concentration - - Weight 78 kg (172 lb) 12/30/2024 10:52 AM EDT Height 188 cm (6' 2) 12/30/2024 10:52 AM EDT Body Mass Index 22.08 12/30/2024 10:52 AM EDT Plan of Treatment Health Maintenance Due Date Last Done Comments Annual Depression Screen 2017 COVID-19 Vaccine (5 - 2024-2 6 season) 2025 07/19/2022, 09/23/2021, 03/09/2021, Additional history exists Influenza Vaccine (#1) 2025 , 06/28/2020, 07/23/2018, Additional history exists Annual Physical 12/30/2025 12/30/2024, 04/0 12/2022, 01/05/2023, Additional history exists DTaP,Tdap,and Td Vaccines (6 - Td or Tdap) 05/13/2027 05/13/2017, 10/11/2009, 03/16/2007, Additional history exists Hepatitis B Vaccines Completed 06/23/2006, 2005, 2005 Pneumococcal Vaccine: to 49yrs Completed 09/15/2006, 03/17/2006, 01/20/2006, Additional history exists MMR Vaccines Completed 10/11/2009, 12/15/2006 Varicella Vaccines Completed 10/11/2009, 09/15/2006 Hepatitis A Vaccines Completed 11/08/2013, 10/08/2013, 02/25/2013 HPV Vaccines Completed 04/25/2019, 05/28/2018 Meningococcal Vaccine Completed 12/27/2021, 017 Meningococcal B Vaccine Completed 01/05/2023, 12/27 Procedures Procedure Name Priority Date/Time Associated Diagnosis Comments RESPIRATORY PANEL BY PCR Routine 05/19/2025 3:35 PM EDT Fever, unspecified fever cause SARS/FLU COMBO Routine 05/19/2025 11:29 AM EDT Fever, unspecified fever cause PERIODIC PREVENTIVE MED EST PATIENT 18-39 YRS Routine 12/30/2024 10:53 AM EDT Routine general medical examination at a health care facility from Last 3 Months or Most Recently Relevant to Health Maintenance Results * (ABNORMAL) RESPIRATORY PANEL BY PCR [...] LABORATORIES Comment: Testing is performed using the [employer] FimArray Respiratory Panel 2.1. This assay has [...] observations, patient history, and epidemiological information. PERFORMED BY:[facility], [address] [place] [address] Other NASOPHARYNGEAL SWAB / Unknown 05/19/2025 3:35 PM EDT 05/19/2025 3:35 PM EDT Narrative [facility]KA [facility]ILLA - 05/20/2025 1:48 AM EDT us Te Sales PA-C LABORATORY Final Result [facility]KA [facility] [address] [facility] [place] [address] * SARS/FLU COMBO (05/19/2025 11:29 AM EDT) Sars Negative Negative Influenza A Negative Negative Influenza B Negative Negative Lot Number [id number] REQUIRED Expiration Date 2,[id number] mm/dd/yy Internal Control Yes Present Body fluid, unspecified 05/19/2025 11:29 AM EDT us Te Sales PA-C POINT OF CARE TEST ORDERABLES Final Result from [place] [id number] [facility] Care Teams Inspector Crystal Relationship Specialty Start Date End Date Quang Neville MD [address] [place] [place] [address] PCP - General Pediatrics 11/10/22
--- OUTSIDE RECORDS SUMMARY | 2025-07-04 22:24 | XMS_ITS | Encounter Summary ---
Author Organization [facility] Address [address] [place] [address] Care Team Providers Care Thimble Press Operator Name Role Phone Quang Neville MD Primary Care Provider [phone] Encounter Details Date Type Department Care Team ([facility] st Contact Info) Description 10/25/2017 Duly Conversion Encounter Immediate [facility] - [address] [facility] [address] [place] [place] [address] Magdy Tiwari, [address] [place] [address] Social History Tobacco Use Types Packs/Day Years Used Date Smoking Tobacco: Never Assessed Sex and Gender Information Value Date Recorded Sex Assigned at Male 09/24/2022 4:59 PM BALANCE RECESSER Legal Sex Male 4:59 PM BALANCE RECESSER Gender Identity Not on file Sexual Orientation Not on file documented as of this encounter Progress Notes * Magdy Tiwari MD - 10/25/2017 8:40 PM EST [facility] [address] [place] [facility] [place] [address] [email or web address].American Board [email or web address] Addiction Medicine (ABAM) Patient: Yaya Serrano Norris MR#: [id number] Date of Visit: 10/25/2017 3:45 PM : 2005 Visit Type: Urgent Care Visit Age: 12 years 1 month Rendering Physician: Magdy Tiwari DO Gender: Male Primary Care Provider: Quang Neville MD CHIEF COMPLAINT: Right ear pain. SUBJECTIVE: The patient presents today with his father with a chief complaint of right ear pain yanique low-grade fever up to 100 today. The patient states on or Thursday, he had a fever of 101,and intense right ear pain, since that time fever has been around 100, 101, and taking Tylenol and Motrin, and last night did not have the fever. Today, just did not feel like he was getting better, and they were worried about him going to school tomorrow so they came in for evaluation. REVIEW OF SYSTEMS: In the EHR. PHYSICAL EXAM: Vital Signs: Temperature is 100.6, weight 103 pounds. General: The patient is in no acute distress, conversational and cooperative with the exam. HEENT: Head is normocephalic, atraumatic. Ears: Left ear shows no cerumen impaction. No tympanic membrane bulginess or redness. Right ear shows no cerumen impaction, it is erythematous. There is a little fluid level *------* . Oropharynx shows no pharyngitis or tonsillitis. Medications (Prescribed/Renewed this visit) Medication Directions Started Stopped Samples amoxicillin 250 mg chewable tablet Chew and swallow 2 tabs PO BID x 7 days 10/25/2017 N Intake Comments: Right Ear Pain intermittently. Fever intermittently as well-since . History of Present Illness This 12 year 1 month old male. 1. Earache (peds) 2. Fever Review of Systems System Neg/Pos Details Constitutional Positive Fever. ENMT Positive Otalgia. Allergic/Immuno Negative Animals at home. Vital Signs BP (mm/hg) Pulse (min) Resp (min) Temp (F) Ht (ft) Ht (in) Ht (cm) Ht (%) Wt (lb) Wt (oz) Wt (%) BMI (kg/m2) BSA (m2) O2 (Sat%) 100.6 103.60 74 Date Time Measured by 10/25/2017 3:52 PM Madalyn Aguilera MA Past Medical/Surgical History (Detailed) 10/25/2017 Disease/Disorder Onset Management Date dental exam 11/2014 vision 12/[address] [facility]endez dentist December 2015 Family History (Detailed) 10/25/2017 Social History: (Detailed) 10/25/2017 Smoking/Tobacco Status: Demographics: Preferred language is Slovak. Home Environment: Water source: municipal. Water is chlorinated. Water is fluoridated. Diet: , diabetic There is not a pool or spa at home. He/she does not have pets at home. Education: School Name [employer]. Grade level is fourth grade. Medications (Reconciled/Reviewed) Patient is on no medications. Allergies No known allergies. Medication Ingredient Reaction Comment Intolerance NO KNOWN ALLERGIES N CC Providers: Quang Neville MD [address] [place] [address]- Document generated by: Magdy Tiwari DO 10/26/2017 07:50 AM NCE RECESSER NCE RECESSER * Magdy Tiwari MD - 10/25/2017 3:55 [place] [address] www.American Board of Addiction Medicine (ABAM) Patient: Yaya Pisano MR#: [id number] Date of Visit: 10/25/2017 3:45 PM : 2005 Visit Type: Urgent Care Visit Age: 12 years 1 month Rendering Physician: Magdy Tiwari DO Gender: Male Primary Care Provider: Quang Neville MD INTAKE NOTE Intake Comments: Right Ear Pain intermittently. Fever intermittently as well-since . History of Present Illness This 12 year 1 month old male. 1. Earache (peds) 2. Fever Review of Systems System Neg/Pos Details Constitutional Positive Fever. ENMT Positive Otalgia. Allergic/Immuno Negative Animals at home. Vital Signs Weight/BSA/BMI: Wt lb Wt oz Wt kg Wt % Context BMI kg/m2 BMI % BSA m2 103.60 46.992 74 dressed with shoes Temperature/Pulse/Respiration: Temp F Temp C Temp Site Pulse/min Pattern Resp/min 100.6 38.1 ear Date Time Measured by 10/25/2017 3:52 PM Madalyn Aguilera MA Medications (Reconciled/Reviewed) Patient is on no medications. Allergies: No known allergies. Medication Ingredient Reaction Comment Intolerance NO KNOWN ALLERGIES N Past Medical/Surgical History (Detailed) 10/25/2017 Disease/Disorder Onset Management Date dental exam 11/2014 vision 12/[address] Mendez dentist December 2015 Family History (Detailed) 10/25/2017 Document generated by: Madalyn Aguilera MA 10/25/2017 NCE RECESSER NCE RECESSER documented in this encounter Plan of Treatment Not on file documented as of this encounter Visit Diagnoses Not on filedocumented in this encounter Care Teams Thimble Press Operator Relationship Specialty Start Date End Date Quang Neville MD [address] [place] [address] PCP - General Pediatrics 11/10/22 documented as of this encounter
--- OUTSIDE RECORDS SUMMARY | 2025-07-04 22:24 | XMS_ITS | Encounter Summary ---
Author Organization [facility] Address [address] [place] [address] Care Team Providers Care Tool Grinder Set Up Operator Gear Name Role Phone Quang Neville MD Primary Care Provider [phone] Encounter Details Date Type Department Care Team ([facility] st Contact Info) Description 05/04/2020 Duly Conversion Encounter Pediatrics - [address] [facility] [address] [place] [address] Quang Neville MD [address] [place] [address] Social History Tobacco Use Types Packs/Day Years Used Date Smoking Tobacco: Never Assessed Sex and Gender Information Value Date Recorded Sex Assigned at Male 09/24/2022 4:59 PM 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 Legal Sex Male 4:59 PM 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 Gender Identity Not on file Sexual Orientation Not on file documented as of this encounter Progress Notes * Quang Neville MD - 05/04/2020 2:46 PM EDT [facility] [address] [place] [facility] [place] [address] [email or web address] MESSAGE Rendering MD: Quang Neville MD Patient Name: Yaya Pisano Age: 14 year 7 month old MR#: [id number] : 2005 Date of Call: 05/04/2020 Time of Call: 2:43 PM Work Phone: Cell Phone: Alternate Preferred Pharmacy: [facility] #[id number] Address: [facility] [address] ([address], [place] Spoke with: Time of call: 2:46 PM Call taken by: Radha Geronimo RN Contact type: Call type: outgoing Date Time Employee Concerns/Issues Detail 05/04/2020 2:43 PM Radha Geronimo RN Please inform pt. of negative COVID result and schedule VV as appropriate. Thanks 05/04/2020 2:46 PM Madalyn Murillo MA I spoke to mom. She voiced understanding. 05/04/2020 2:46 PM Madalyn Murillo MA Outgoing: Completed Document generated by: Madalyn Murillo MA documented in this encounter Plan of Treatment Not on file documented as of this encounter Visit Diagnoses Not on filedocumented in this encounter Care Teams Tool Grinder Set Up Operator Gear Relationship Specialty Start Date End Date Quang Neville MD [address] [place] [phone] PCP - General Pediatrics 11/10/22 documented as of this encounter
--- OUTSIDE RECORDS SUMMARY | 2025-07-04 22:24 | XMS_ITS | Encounter Summary ---
Author Organization [facility] Address [address] [place] [address] Care Team Providers Care Program Supervisor Name Role Phone Quang Neville MD Primary Care Provider [phone] Encounter Details Date Type Department Care Team ([facility] st Contact Info) Description 06/28/2015 Duly Conversion Encounter Pediatrics - [address] [facility] [address] [facility] [address] Quang Neville MD [address] [place] [facility] [phone] Social History Tobacco Use Types Packs/Day Years Used Date Smoking Tobacco: Never Assessed Sex and Gender Information Value Date Recorded Sex Assigned at Male 09/24/2022 4:59 PM 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 Assessment Sinusitis, Acute (461.9). Patient Plan Take antibiotic as directed, acetaminophen or ibuprofen as needed for fever or discomfort. Expect improvement in 3-5 days, call if not improving as expected. Follow up as needed. Medications (Prescribed/Renewed this visit) Medication Directions Started Stopped Samples amoxicillin 400 mg/5 mL oral suspension take 7.5 Milliliter by Oral route 2 times every day for 10 days 06/28/2015 07/07/2015 N Intake Comments Cough x 5 days Getting worse the past 2 days Fever (102) on/off x 5days Tired, PND,Lower appetite Taking Ibuprofen for fever History of Present Illness This 9 year 9 month old male presents for Cough. 1. Cough Onset: 5 days ago. Severity: moderate. The patient describes the cough as hacking and productive. The problem has become gradually worse. There are no aggravating factors. There are no relieving factors. Associated symptoms include cough, fatigue, fever and post-nasal drainage. Review of Systems System Neg/Pos Details Constitutional Positive Fatigue, Fever. ENMT Positive Post-nasal drainage. Respiratory Positive Cough. Physical Exam Exam Findings Details Eyes Normal Conjunctiva - Right: Normal, Left: Normal. Ears Normal Inspection - Right: Normal, Left: Normal. Canal - Right: Normal, Left: Normal. TM - Right: Normal, Left: Normal. Nose/Mouth/Throat * Nares - Right: discharge - purulent, Left: discharge - purulent. Nasal Mucosa -edema, erythema. Oropharynx - post nasal discharge. Nose/Mouth/Throat Normal Lips/teeth/gums - Normal. Tongue - Normal. Palate & uvula - Normal. Tonsils - Normal. Nasopharynx * Oropharynx - post nasal discharge. Nasopharynx Normal Lips/teeth/gums - Normal. Tonsils - Normal. Neck Exam Normal Thyroid gland - Normal. Respiratory Normal Auscultation - Normal. Effort - Normal. Cardiovascular Normal Regular rhythm. No murmurs, gallops, or rubs. Medications (Reconciled/Reviewed) Patient is on no medications. Allergies No known allergies. Medication Ingredient Reaction Intolerance Comment NO KNOWN ALLERGIES N Document generated by: Quang Neville MD 07/03/2015 09:44 AM * Quang Neville MD - 06/28/2015 11:27 AM EDT [facility] [address] [place] [address] [email or web address] Patient: Yaya Pisano MR#: [id number] Date of Visit: 06/28/2015 11:20 AM : 2005 Visit Type: Office Visit Age: 9 years 9 months Rendering Physician: Quang Neville MD Gender: Male Primary Care Provider: Quang Neville MD Historian: mother Intake Comments Cough x 5 days Getting worse the past 2 days Fever (102) on/off x 5days Tired, PND,Lower appetite Taking Ibuprofen for fever 1. Cough Medications (Reconciled/Reviewed) Patient is on no medications. Allergies No known allergies. Medication Ingredient Reaction Intolerance Comment NO KNOWN ALLERGIES N Past Medical/Surgical History Disease/disorder Onset Management Date dental exam 11/2014 vision 12/2014 school Social History General: Preferred language is Yoruba. Document generated by: Natalya Galindo 06/28/2015 documented in this encounter Plan of Treatment Not on file documented as of this encounter Visit Diagnoses Not on filedocumented in this encounter Care Teams Program Supervisor Relationship Specialty Start Date End Date Quang Neville MD [address] [place] [address] PCP - General Pediatrics 11/10/22 documented as of this encounter
--- OUTSIDE RECORDS SUMMARY | 2025-07-04 22:24 | XMS_ITS | Encounter Summary ---
Author Organization [facility] and Care Address [address] [place] [address] Care Team Providers Care Apprentice Lineman Third Step Name Role Phone Quang Neville MD Primary Care Provider [phone] Encounter Details Date Type Department Care Team (Late st Contact Info) Description 11/17/2017 Duly Conversion Encounter DULY SBC CONVERSION Manuel Greenberg [address] [place] [facility] [place] [address] Social History Tobacco Use Types Packs/Day Years Used Date Smoking Tobacco: Never Assessed Sex and Gender Information Value Date Recorded Sex Assigned at Male 09/24/2022 4:59 PM 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 Legal Sex Male 4:59 PM 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 MEDIATOR Gender Identity Not on file Sexual Orientation Not on file documented as of this encounter Progress Notes * Manuel Greenberg - 11/18/2017 9:27 AM EST The [facility] [address] [facility] [place] [address] [email or web address] Patient: Yaya Pisano MR#: [id number] Date of Visit: 11/17/2017 9:00 AM : 2005 Visit Type: Office Visit Age: 12 years 2 months Rendering Physician: Manuel Greenberg COMPRESSOR MECHANIC Gender: Male Primary Care Provider: Quang Neville MD Historian: father Assessment/Plan # Detail Type Description 1. Assessment Acute pharyngitis, unspecified (J02.9). Provider Plan rapid strep positive Plan Orders The patient had the following test(s) completed today Rapid Strep. 2. Assessment Strep pharyngitis (J02.0), New. Patient Plan Complete antibiotic as prescribed. Give Tylenol or ibuprofen as needed for fever or discomfort. Cool drinks may help soothe sore throat. Follow up if symptoms worsen or fail to improve. Office Procedures Completed (this encounter) Status Order Quantity Dx Interpretation Result Details completed Rapid Strep 1.00 J02.9 positive Order ExpDate Lot Number Attending Urologist Rapid Strep Medications (Prescribed/Renewed this visit) Medication Directions Started Stopped Samples cephalexin 250 mg/5 mL oral suspension take 10 milliliter by oral route every 12 hours 11/17/2017 11/26/2017 N Medications (Stopped this visit) Medication Directions Started Stopped amoxicillin 250 mg chewable tablet Chew and swallow 2 tabs PO BID x 7 days 10/25/2017 11/17/2017 Intake Comments: Pt is here with dad with sore throat since this morning and hurts to swallow. Pt complains of right ear pain x2 weeks. Headache yesterday and fever (100.0) this morning. Waking up through the night and decrease appetite. No vomiting or diarrhea. Taking Motrin prn. History of Present Illness This 12 year 2 month old male presents for Sore Throat and Ear Pain. 1. Sore Throat rt ear pain x [address] today LGF decreased appetite and activity no V or D 2. Ear Pain Review of Systems System Neg/Pos Details Constitutional Positive Decreased activity, Fever. ENMT Positive Otalgia (Right side), Pharyngitis. ENMT Negative Rhinorrhea. Respiratory Negative Cough. GI Positive Decreased appetite. GI Negative Diarrhea and vomiting. Physical Exam Exam Findings Details Constitutional Normal No acute distress. Well nourished. Well developed. Head/Face Normal Skull - Normal. Eyes Normal Conjunctiva - Right: Normal, Left: Normal. Sclera - Right: Normal, Left: Normal. Pupil - Right: Normal, Left: Normal. Ocular muscles - Right: Normal, Left: Normal. Ears * TM - Right: effusion-small. Ears Normal Inspection - Right: Normal, Left: Normal. Canal - Right: Normal, Left: Normal. Nasopharynx * Tonsils - exudate. Oropharynx - erythema. Nasopharynx Normal Nares - Right: Normal, Left: Normal. Nasal mucosa - Normal. Lips/teeth/gums - Normal. Palate & uvula - Normal. Neck Exam Normal Neck inspection- Normal. Thyroid gland - Normal. Neck ROM - Normal. Lymph Detail Comments firm AC nodes. Respiratory Normal Auscultation - Normal. Cough - Absent. Effort - Normal. Cardiovascular Normal Heart rate - Regular rate. Rhythm - Regular. Murmurs - None. Neurological Normal Balance and gait - Normal. Psychiatric Normal Behavior appropriate for age. Medications (Reconciled/Reviewed) Medications reconciled today. Patient is on no medications. Allergies No known allergies. Medication Ingredient Reaction Comment Intolerance NO KNOWN ALLERGIES N Encounter submitted for review by Manuel Greenberg NP on 11/17/2017 9:21 AM. Visit details reviewed and approved by supervising physician Grant Gusman MD on 11/18/2017 at 9:27 AM Document generated by: Grant Gusman MD 11/18/2017 09:27 AM BELLE * Manuel Greenberg - 11/17/2017 9:02 [place] [address] [email or web address] Patient: Yaya Pisano MR#: [id number] Date of Visit: 11/17/2017 9:00 AM : 2005 Visit Type: Office Visit Age: 12 years 2 months Rendering Physician: Manuel Greenberg NP Gender: Male Primary Care Provider: Quang Neville MD Historian: father INTAKE NOTE Intake Comments: Pt is here with dad with sore throat since this morning and hurts to swallow. Pt complains of rightear pain x2 weeks. Headache yesterday and fever (100.0) this morning. Waking up through the night and decrease appetite. No vomiting or diarrhea. Taking Motrin prn. History of Present Illness 1. Sore Throat 2. Ear Pain Medications: (Stopped this visit) Medication Directions Started Stopped amoxicillin 250 mg chewable tablet Chew and swallow 2 tabs PO BID x 7 days 10/25/2017 11/17/2017 Medications (Reconciled/Reviewed) Medications reconciled today. Patient is on no medications. Allergies: No known allergies. Medication Ingredient Reaction Comment Intolerance NO KNOWN ALLERGIES N Past Medical/Surgical History Disease/Disorder Onset Management Date dental exam 11/2014 vision 12/[address] Mendez dentist December 2015 Document generated by: Dana Quigley MA 11/17/2017 ERS' COMPENSATION MEDIATOR documented in this encounter Plan of Treatment Not on file documented as of this encounter Visit Diagnoses Not on filedocumented in this encounter Care Teams Apprentice Lineman Third Step Relationship Specialty Start Date End Date Quang Neville MD [address] [place] [address] PCP - General Pediatrics 11/10/22 documented as of this encounter
--- OUTSIDE RECORDS SUMMARY | 2025-07-04 22:24 | XMS_ITS | Encounter Summary ---
Author Organization [facility] and [facility] Address [address] [place] [address] Care Team Providers Care Client Delivery Specialist Name Role Phone Quang Neville MD Primary Care Provider [phone] Encounter Details Date Type Department Care Team ([facility] st Contact Info) Description 05/01/2020 Duly Conversion Encounter Pediatrics - [address] [facility] [address] [facility] [place] [address] Quang Neville MD [address] [facility] [place] [address] Social History Tobacco Use Types Packs/Day Years Used Date Smoking Tobacco: Never Assessed Sex and Gender Information Value Date Recorded Sex Assigned at Male 09/24/2022 4:59 PM 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 [place] [address] [email or web address] [email or web address] MESSAGE Rendering MD: Quang Neville MD Patient Name: Yaya Pisano Age: 14 year 7 month old MR#: [id number] : 2005 Date of Call: 05/01/2020 Time of Call: 9:37 AM Work Phone: Cell Phone: Alternate Preferred Pharmacy: [facility] #[id number] Address: [facility] [address] ([address], [place] Spoke with: mother (Keisha) Time of call: 4:25 PM Call taken by: Anh Seo Contact type: Call type: medical question Date Time Employee Concerns/Issues Detail 05/01/2020 9:37 AM Anh Seo Mom calling concerned about covid. Pt did the east race on 04/28and wore a mask when in line, but not in boat. on 04/29 pt started having fatigue, h/a, and body aches. Today has 100.5 temp. Not sure if he has diarrhea or sob. no cough, congestion, or s/t. No one else in the family has any symptoms. Please advise 05/01/2020 10:00 AM Sejal Mendosa MA Mom calling concerned about covid. Pt did the east race on 04/28 and wore a mask when in line, but not in boat. on 04/29 pt started having fatigue, h/a, and body aches. Today has 100.5 temp. Not sure if he has diarrhea or sob. no cough, congestion, or s/t. Please advise 05/01/2020 1:09 PM Grant Gusman MD OK to order COVID test He should isolate for 14 days from onset of symptoms 05/01/2020 1:57 PM Sejal Mendosa MA Lm to return call. Okay to schedule a Covid test at one of our locations. I put order in computer. 05/01/2020 3:50 PM Anh Seo pt was already tested today at [facility] location 05/01/2020 4:25 PM Sejal Mendosa MA Medical Question: Completed 05/01/2020 4:25 PM Sejal Mendosa MA ok Document generated by: Sejal Mendosa MA * Quang Neville MD - 05/01/2020 1:59 PM EDT [email or web address] The [facility] [address] [place] [address] LABORATORY REQUISITION Patient Name: Yaya Pisano MR#: [id number] Patient Address: [address] [place] [address] : 2005 [place] [address] Age: 14 years 7 months Patient Gender: Male Primary Care Provider: Quang Neville MD Date of Order: 05/01/2020 9:36 AM Ordering Physician: Quang Neville MD Lab Orders: Dx Code Lab Study Timeframe Date Comments Z20.828 *Coronavirus, COVID-19 -today 05/01/2020 Electronically ordered/signed by: Quang Neville MD Document generated by: Sejal Mendosa MA 05/01/2020 01:59 PM documented in this encounter Plan of Treatment Not on file documented as of this encounter Visit Diagnoses Not on filedocumented in this encounter Care Teams Client Delivery Specialist Relationship Specialty Start Date End Date Quang Neville MD [address] [place] [address] [place] [address] PCP - General Pediatrics 11/10/22 documented as of this encounter
--- OUTSIDE RECORDS SUMMARY | 2025-07-04 22:24 | XMS_ITS | Encounter Summary ---
Author Organization [facility] Address [address] [place] [address] Care Team Providers Care B2B Sales Consultant Name Role Phone Quang Neville MD Primary Care Provider [phone] Encounter Details Date Type Department Care Team ([facility] st Contact Info) Description 05/18/2015 Duly Conversion Encounter Pediatrics - [address] [facility] [address] [facility] [place] [address] Quang Neville MD [address] [facility] [place] [address] Social History Tobacco Use Types Packs/Day Years Used Date Smoking Tobacco: Never Assessed Sex and Gender Information Value Date Recorded Sex Assigned at Male 09/24/2022 4:59 PM BUSINESS 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 Phone: * Preferred Pharmacy: Spoke with: (father) miri. Activities Date Time Employee Activity 05/18/2015 09:25:19 Imani Lind Rough, tender,flesh colored, bump on bottom of foot x 3 months. Discomfort when running or playing sports, no pain. No other sxs. Dad asking if pt can be seen prior to starting school after ? Anytime next week except 05/25. Please advise Call Disposition Telephone Call is open. documented in this encounter Plan of Treatment Not on file documented as of this encounter Visit Diagnoses Not on filedocumented in this encounter Care Teams B2B Sales Consultant Relationship Specialty Start Date End Date Quang Neville MD [address] [place] [address] PCP - General Pediatrics 11/10/22 documented as of this encounter
--- OUTSIDE RECORDS SUMMARY | 2025-07-04 22:24 | XMS_ITS | Encounter Summary ---
Author Organization [facility] Address [address] [place] [address] Care Team Providers Care Marine Diesel Mechanic Name Role Phone Quang Neville MD Primary Care Provider [phone] Encounter Details Date Type Department Care Team ([facility] st Contact Info) Description 12/27/2021 Duly Conversion Encounter Pediatrics - [address] [facility] [address] [place] [address] Quang Neville MD [address] [place] [place] [address] Social History Tobacco Use Types Packs/Day Years Used Date Smoking Tobacco: Never Assessed Sex and Gender Information Value Date Recorded Sex Assigned at Male 09/24/2022 4:59 PM RIPSAW GRADER Legal Sex Male 4:59 PM RIPSAW GRADER Gender Identity Not on file Sexual Orientation Not on file documented as of this encounter Progress Notes * Quang Neville MD - 12/27/2021 10:31 AM EDT [facility] [address] [place] [place] [address] [email or web address] Patient: Yaya Serrano HarshadSelene MR#: [id number] Date of Visit: 12/27/2021 9:30 AM : 2005 Visit Type: Well child Age: 16 years 3 months Rendering Physician: Quang Neville MD Gender: Male Primary Care Provider: Kelin GONSALES, Quang Zarco Historian: Mother Assessment/Plan # Detail Type Description 1. Assessment Encounter for routine child health examination without abnormal findings (Z00.129). Patient Plan Anticipatory guidance given regarding physical growth and development, social and academic competence, emotional well-being, risk reduction and violence and injury prevention. Plan Orders He is to schedule a follow-up visit with Quang Neville MD, Дмитрий Bustos for Well child visit 1 Year. 2. Assessment Dietary counseling and surveillance (Z71.3). 3. Assessment Exercise counseling (Z71.82). 4. Other Orders Orders not associated to today's assessments. Plan Orders MCV4 Status: Administered; meningococcal B, OMV, 2 dose schedule Status: Administered. Office Procedures Completed (this encounter) Order Details Reason Side Interpretation Result Initial Treatment Date Region Generalized Anxiety Disorder - 7 (JIAN-7) Minimal 2 Immunizations Status Date Description Exp Date Lot # Bin Piler Administered 12/27/2021 MCV4 01/26/2023 12:00:00 AM [id number] sanofi pasteur Administered 12/27/2021 meningococcal B, OMV, 2 dose schedule 07/04/2022 12:00:00 AM [id number] Patients Know Best Intake Comments: Well exam Dad is in the waiting room Had strep 1 mth ago History of Present Illness 1. Well child Doing well, no concerns. 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 Track Patient Screenings and Questionnaires Encounter Date Documented Date Instrument Score Severity/Interpretation MDD Classification 12/27/2021 12/27/2021 Generalized Anxiety Disorder - 7 (JIAN-7) 2 Minimal Review of Systems System Neg/Pos Details Constitutional Negative Fever, Irritability and Lethargy. ENMT Negative Ear drainage, Hearing loss and Nasal drainage. Eyes Negative Eye discharge and Vision loss. Respiratory Negative Cough, Dyspnea and Wheezing. Cardio Negative Cool extremity and Irregular heartbeat/palpitations. GI Negative Abdominal pain, Constipation, Decreased appetite, Diarrhea and Vomiting. Negative Dysuria, Hematuria and Polyuria (Genitourinary). Endocrine Negative Polydipsia, Polyphagia and Polyuria (Endocrine). Psych Negative Inconsolable and Psychiatric symptoms. Integumentary Negative Pruritus and Rash. MS Negative Bone/joint symptoms. Asif/Lymph Negative Easy bleeding and Easy bruising. Allergic/Immuno Negative Environmental allergies and Food allergies. Reproductive Negative Penile discharge. Vital Signs Time BP mm /Hg Pulse /min Resp /min Temp F Ht ft Ht in Ht cm Wt lb Wt kg Weight % BMI kg/m2 BMI % BSA m2 O2 Sat% 9:30 AM 118/66 6.0 1.00 185.42 151.00 68.492 70.9 19.92 37 Time Measured by 9:30 AM Natalya Mateo ROBLES Physical Exam Exam Findings Details Constitutional Normal [...] Neck inspection- Normal. Thyroid gland - Normal. Respiratory Normal Auscultation - Normal. Cough - Absent. Effort - Normal. Cardiovascular Normal Heart rate - Regular rate. Rhythm - Regular. Murmurs - None. Abdomen Normal Inspection - Normal. Auscultation - Normal. Palpation - Normal. No abdominal tenderness. Genitourinary Normal Testes - Normal. No CVA tenderness. No hernia. Skin Normal General inspection - Normal. Back/Spine Normal Lateral - No scoliosis. Musculoskeletal Normal Visual overview of all four extremities is normal. Extremity Normal No cyanosis. Neurological Normal Cranial nerves II-XII - Normal. Sensory - Normal. Balance and gait - Normal. DTRs - Normal. Psychiatric Normal Orientation - Oriented to time, place, person & situation. Behavior appropriate for age. Medications (Reconciled/Reviewed) Patient is on no medications. Allergies No known allergies. Medication Ingredient Reaction Comment Intolerance NO KNOWN ALLERGIES N Document generated by: Quang Neville MD 12/27/2021 10:31 AM * Quang Neville MD - 12/27/2021 9:31 AM EDT The [address] [address] [email or web address] Patient: Yaya Pisano MR#: [id number] Date of Visit: 12/27/2021 9:30 AM : 2005 Visit Type: Well child Age: 16 years 3 months Rendering Physician: Quang Neville MD Gender: Male Primary Care Provider: Quang Neville MD Historian: Self INTAKE NOTE Intake Comments: Well exam Dad is in the waiting room Had strep 1 mth ago History of Present Illness 1. Well child Vital Signs Height: Time ft in cm Last Measured Height Position % Measured By 9:30 AM 6.0 1.00 185.42 05/28/2018 94.1 Natalya Stone MA Weight/BSA/BMI: Time lb oz kg Context Weight % BMI kg/m2 BMI % BSA m2 Measured By 9:30 AM 151.00 68.492 70.9 19.92 37 Natalya Stone MA Blood Pressure: Time BP mm/Hg Position Side Site Method Cuff Size Measured By 9:30 AM 118/66 Natalya Stone MA Time Measured by 9:30 AM Natalya Stone MA Medications (Reconciled/Reviewed) Patient is on no medications. Allergies: No known allergies. Medication Ingredient Reaction Comment Intolerance NO KNOWN ALLERGIES N Past Medical/Surgical History Disease/Disorder Onset Management Date vision 12/2014 school dental exam 11/2014 DDS March [address] Mendez dentist December 2015 Vision 2018 office Social History: Demographics: Preferred language is Ivorian. Document generated by: Natalya Galindo MA 12/27/2021 documented in this encounter Plan of Treatment Not on file documented as of this encounter Visit Diagnoses Not on filedocumented in this encounter Care Teams Marine Diesel Mechanic Relationship Specialty Start Date End Date Quang Neville MD [address] [place] [address] PCP - General Pediatrics 11/10/22 documented as of this encounter
--- OUTSIDE RECORDS SUMMARY | 2025-07-04 22:24 | XMS_ITS | Encounter Summary ---
Author Organization [facility] and [facility] Address [address] [place] [address] Care Team Providers Care Stranding Machine Operator Name Role Phone Quang Neville MD Primary Care Provider [phone] Encounter Details Date Type Department Care Team (Late st Contact Info) Description 11/20/2021 Duly Conversion Encounter Pediatrics - [address] [facility] [address] [place] [address] Mervat Finley MD [address] [place] [address] Social History Tobacco Use Types Packs/Day Years Used Date Smoking Tobacco: Never Assessed Sex and Gender Information Value Date Recorded Sex Assigned at Male 09/24/2022 4:59 PM BELT FIXER Legal Sex Male 4:59 PM BELT FIXER Gender Identity Not on file Sexual Orientation Not on file documented as of this encounter Progress Notes * Mervat Finley MD - 11/20/2021 2:06 PM EST Patient: Yaya Pisano MR#: [id number] Date of Visit: 11/20/2021 1:08 PM : 2005 Visit Type: Chart Update Age: Rendering Physician: Mervat Velazquez MD Gender: Male Primary Care Provider: Rafael Hernandez MD, Quang E Order Action Action Items/Log: Date Time Employee Comments Response 11/20/2021 1:13 PM Mervat Blake. Gabino Velazquez MD please notify parent that strep culture is positive. however due to his sore throat ongoing for 3 months, I am wondering if he is a carrier more than an actual acute infection. I did start him on an antibiotic and that should cover strep either way. 11/20/2021 1:59 PM Madalyn Iqbal MA LMOM to return call. 11/20/2021 2:06 PM Imani Boykin MA Conveyed to mom. Will start Rx All order action activity has been marked completed by Imani Boykin MA on 11/20/2021 at 2:06 PM Document generated by: Imani Boykin MA 11/20/2021 FIXER FIXER * Mervat Finley MD - 11/19/2021 7:45 PM EST The [address] [address] [email or web address] Patient: Yaya Pisano MR#: [id number] Date of Visit: (11/19/2021 7:27 PM ) 11/19/2021 7:45 PM : 2005 Visit Type: Age: Rendering Physician: Mervat Velazquez MD Gender: Male Primary Care Provider: Quang Neville MD Patient Status IN ERROR FIXER FIXER * Mervat Finley MD - 11/19/2021 4:28 PM EST [email or web address] The [facility] [address] [place] [facility] [place] [address] LABORATORY REQUISITION Patient Name: Yaya Pisano MR#: [id number] Patient [address]: [address] [place] [address] : 2005 [place], [place] [facility]- Age: 16 years 2 months Patient Gender: Male Primary Care Provider: Quang Neville MD Date of Order: 11/19/2021 4:05 PM Ordering Physician: Mervat Velazquez MD Lab Orders: Dx Code Lab Study Timeframe Date Comments J02.9 GROUP A STREP -today 11/19/2021 Electronically ordered/signed by: Mervat Velazquez MD Document generated by: Gaby Tse MA 11/19/2021 04:28 PM FIXER FIXER * Mervat Finley MD - 11/19/2021 4:23 PM EST [facility] [address] [place] [address] [email or web address] Patient: Yaya Pisano MR#: [id number] Date of Visit: 11/19/2021 4:05 PM : 2005 Visit Type: Office Visit Age: 16 years 2 months Rendering Physician: Mervat Velazquez MD Gender: Male Primary Care Provider: Quang Neville MD Historian: father Assessment/Plan # Detail Type Description 1. Assessment Subacute sinusitis, unspecified location (J01.90), Active. Impression Antibiotic provided encourage fluid intake, antibiotics will take a couple days to start working may give acetaminophen or ibuprofen to help with pain return to clinic if no improvement after completing medication.. 2. Assessment Acute pharyngitis, unspecified (J02.9). Plan Orders GROUP A STREP 11/19/2021. The patient had the following test(s) completed today: Rapid Strep. Office Procedures Completed (this encounter) Order Details Reason Side Interpretation Result Initial Treatment Date Region Rapid Strep negative Order ExpDate Lot Number Community Service Worker Rapid Strep Order Patient education/instruction provided. Active Medication List Medication Directions Started Stopped Samples amoxicillin 500 mg tablet take 1 tablet by oral route every 8 hours 11/19/2021 11/28/2021 N Intake Comments: Sore throat on and off x 3 months. No headache/ stomachache or known sick contact.R.y History of Present Illness This 16 year 2 month old male presents for Sore Throat and .. 1. Sore Throat 2. . sore throat x 3 months seems to be more at night and in the morning denies odynophagia has a runny nose and congestion no fever, no vomiting or diarrhea taking lozenges with little improvement Review of Systems System Neg/Pos Details Constitutional Negative Decreased activity and Fever. ENMT Positive Pharyngitis. ENMT Negative Rhinorrhea. Respiratory Negative Cough. GI Negative Abdominal pain, Decreased appetite, Diarrhea and Vomiting. Neuro Negative Headache. Integumentary Negative Rash. Vital Signs Time BP mm /Hg Pulse /min Resp /min Temp F Ht ft Ht in Ht cm Wt lb Wt kg Weight % BMI kg/m2 BMI % BSA m2 O2 Sat% 4:06 PM 85 97.1 152.60 69.218 73.9 100 Time Measured by 4:06 PM Gaby Tse MA Physical Exam Exam Findings Details Constitutional * Level of distress - no acute distress. Eyes Normal Conjunctiva - Right: Normal, Left: Normal. Ears Normal Canal - Right: Normal, Left: Normal. TM - Right: Normal, Left: Normal. Nasopharynx * Oropharynx - post nasal discharge. Nasopharynx Normal Nares - Right: Normal, Left: Normal. Nasal mucosa - Normal. Lymph Detail Normal No palpable cervical, supraclavicular, or axillary adenopathy. Respiratory Normal Auscultation - Normal. Cardiovascular Normal Heart rate - Regular rate. Rhythm - Regular. Murmurs - None. Abdomen Normal Inspection - Normal. Palpation - Normal. Skin Normal General inspection - Normal. Allergies No known allergies. Medication Ingredient Reaction Comment Intolerance NO KNOWN ALLERGIES N Document generated by: Mervat Velazquez MD 11/19/2021 07:45 PM FIXER FIXER * Mervat Finley MD - 11/19/2021 4:07 PM EST The [facility] [address] [place] [address] [email or web address] Patient: Yaya Pisano MR#: [id number] Date of Visit: 11/19/2021 4:05 PM : 2005 Visit Type: Office Visit Age: 16 years 2 months Rendering Physician: Mervat Vealzquez MD Gender: Male Primary Care Provider: Quang Neville MD Historian: father INTAKE NOTE Intake Comments: Sore throat on and off x 3 months. No headache/ stomachache or known sick contact. R.y History of Present Illness 1. Sore Throat Vital Signs Height: Time ft in cm Last Measured Height Position % Measured By 4:06 PM 11/19/2021 Gaby Tse MA Weight/BSA/BMI: Time lb oz kg Context Weight % BMI kg/m2 BMI % BSA m2 Measured By 4:06 PM 152.60 69.218 dressed with shoes 73.9 Gaby Tse MA Temperature/Pulse/Respiration: Time Temp F Temp C Temp Site Pulse/min Pattern Resp/min Measured By 4:06 PM 97.1 36.2 85 Gaby Tse MA Pulse Oximetry/FIO2: Time Pulse Ox (Rest %) Pulse Ox (Amb %) O2 Sat O2 L/Min Timing FiO2 % L/min Delivery Method Finger Probe Measured By 4:06 PM 100 Gaby Tse MA Time Measured by 4:06 PM Gaby Tse MA Medications (Reconciled/Reviewed) Patient is on no medications. Allergies: No known allergies. Medication Ingredient Reaction Comment Intolerance NO KNOWN ALLERGIES N Past Medical/Surgical History Disease/Disorder Onset Management Date dental exam 11/2014 [employer] 12/2014 school DDS March [address] Mendez dentist December 2015 [employer] 2018 office Social History: Demographics: Preferred language is Syriac. Document generated by: Gaby Tse MA 11/19/2021 FIXER FIXER documented in this encounter Plan of Treatment Not on file documented as of this encounter Visit Diagnoses Not on filedocumented in this encounter Care Teams Stranding Machine Operator Relationship Specialty Start Date End Date Quang Neville MD [address] [place] [address] PCP - General Pediatrics 11/10/22 documented as of this encounter
--- OUTSIDE RECORDS SUMMARY | 2025-07-04 22:24 | XMS_ITS | Encounter Summary ---
Author Organization [facility] and [facility] Address [address] [place] [address] Care Team Providers Care Riprap Placing Supervisor Name Role Phone Quang Neville MD Primary Care Provider [phone] Encounter Details Date Type Department Care Team ([facility] st Contact Info) Description 04/25/2019 Duly Conversion Encounter Pediatrics - [address] [facility] [address] [place] [address] Quang Neville MD [address] [place] [address] Social History Tobacco Use Types Packs/Day Years Used Date Smoking Tobacco: Never Assessed Sex and Gender Information Value Date Recorded Sex Assigned at Male 09/24/2022 4:59 PM ICE CREAM DIPPER Legal Sex Male 4:59 PM ICE CREAM DIPPER Gender Identity Not on file Sexual Orientation Not on file documented as of this encounter Progress Notes * Quang Neville MD - 04/26/2019 7:53 AM EDT The [facility] [address] [facility] [place] [address] [email or web address] Patient: Yaya Serrano [place]Kae MR#: [id number] Date of Visit: 04/25/2019 10:45 AM : 2005 Visit Type: Well child Age: 13 years 7 months Rendering Physician: Quang Neville MD Gender: Male Primary Care Provider: Quang Neville MD Historian: Mother Assessment/Plan # Detail Type Description [...] for Well child visit 1 Year. 2. Other Orders Orders not associated to today's assessments. Plan Orders Human Papillomavirus 9-valent vaccine Status: Administered. Immunizations Status Date Description Exp Date Lot # News Intern Administered 04/25/2019 Human Papillomavirus 9-valent vaccine 09/10/2020 12:00:00 AM [id number] [employer] Intake Comments: Well exam Doing well, No concerns History of Present Illness This 13 year 7 month old male presents for Well child. 1. Well child Doing well, no concerns. 8th grade at [employer] Review of Systems System Neg/Pos Details Constitutional [...] allergies. Reproductive Negative Penile discharge. Vital Signs BP mm/Hg Pulse (min) Resp (min) Temp (F) Ht (ft) Ht (in) Ht (cm) Ht (%) Wt (lb) Wt (oz) Wt (%) BMI (kg/m2) BSA (m2) O2 (Sat%) 116/50 5.0 5.00 165.10 69.7 112.80 58.9 18.77 Date Time Measured by 04/25/2019 10:44 AM Natalya Galindo MA 04/25/2019 10:44 AM Natalya Galindo MA Physical Exam Exam Findings Details Constitutional Normal [...] person & situation. Behavior appropriate for age. Allergies No known allergies. Medication Ingredient Reaction Comment Intolerance NO KNOWN ALLERGIES N Document generated by: Quang Neville MD 04/26/2019 07:52 AM * Quang Neville MD - 04/25/2019 11:09 AM EDT The [address] [address] [email or web address] PATIENT PLAN Patient: Yaya Pisano MR#: [id number] Office Visit Date: 04/25/2019 10:45 AM : 2005 Visit Type: Well child Age: 13 years 7 months Physician: Quang Neville MD Gender: Male PCP: Quang Neville MD Race: White Thank you for choosing the [facility] for your healthcare needs. The following is a summary of today's visit, including instructions and other important information we hope you find helpful. Reason(s) for Today's Visit Well child. Today's Plan & Instructions Detail Type Diagnosis & Plan Assessment Encntr for routine child health exam w/o abnormal findings (Z00.129). Patient Plan Anticipatory guidance given regarding physical growth and development, social and academic competence, emotional well-being, risk reduction and violence and injury prevention.. Plan Orders He is to schedule a follow-up visit with Дмитрий Hanson MD for Well child visit 1 Year. Additional Instructions Patient education/instruction provided. Patient education/instruction provided. Vitals Recorded at this Visit BP mm/Hg Pulse/min Resp/min Temp F Height (Total in.) Weight (lbs.) Weight (oz.) BMI 116/50 65.00 112.80 18.77 Appointments, Orders, & Referrals Follow-Up Appointments : Follow-up Appointment follow-up visit with Дмитрий Hanson MD for Well child visit 1 Year Other Health Information Current Allergies Medication Name Ingredient Intolerance Reaction NO KNOWN ALLERGIES N Current Immunizations Status Immunization Date Comments Administered Human Papillomavirus 9-valent vaccine 05/28/2018 11:12:08 AM Administered MCV4 05/13/2017 4:14:23 PM Administered Tdap 05/13/2017 4:14:48 PM Administered Influenza virus vaccine, injectable, quadrivalent, split virus, preservative free, 3 years or older Fluarix, Flulaval or Fluzone Quad [id number] 09/24/2009 12:00:00 AM Administered Influenza virus vaccine, injectable, quadrivalent, split virus, preservative free, 3 years or older Fluarix, Flulaval or Fluzone Quad [id number] 08/13/2010 12:00:00 AM Administered Influenza virus vaccine, injectable, quadrivalent, split virus, preservative free, 3 years or older Fluarix, Flulaval or Fluzone Quad 08/09/2009 12:00:00 AM Administered Influenza virus vaccine, injectable, quadrivalent, split virus, preservative free, 3 years or older Fluarix, Flulaval or Fluzone Quad 07/13/2008 12:00:00 AM Administered Influenza virus vaccine, injectable, quadrivalent, split virus, preservative free, 3 years or older Fluarix, Flulaval or Fluzone Quad 07/27/2007 12:00:00 AM Administered Influenza virus vaccine, injectable, quadrivalent, split virus, preservative free, 3 years or older Fluarix, Flulaval or Fluzone Quad 09/15/2006 12:00:00 AM Administered Influenza virus vaccine, injectable, quadrivalent, split virus, preservative free, 3 years or older Fluarix, Flulaval or Fluzone Quad 07/09/2006 12:00:00 AM Administered Pneumococcal, PCV-13 09/15/2006 12:00:00 AM Administered Pneumococcal, PCV-13 03/17/2006 12:00:00 AM Administered Pneumococcal, PCV-13 01/20/2006 12:00:00 AM Administered Pneumococcal, PCV-13 2005 12:00:00 AM Administered Polio, Inactive 10/11/2009 12:00:00 AM Administered Hib (PRP-OMP) 12/15/2006 12:00:00 AM Administered Hib (PRP-OMP) 03/17/2006 12:00:00 AM Administered Hib (PRP-OMP) 01/20/2006 6:05:48 PM Administered Hib (PRP-OMP) 2005 12:00:00 AM Administered Polio, Inactive 03/16/2007 4:38:44 PM Administered Polio, Inactive 01/20/2006 12:37:48 PM Administered DTaP (younger than 7 yrs) 10/11/2009 12:00:00 AM Administered DTaP (younger than 7 yrs) 03/16/2007 12:00:00 AM Administered DTaP (younger than 7 yrs) 07/17/2006 12:00:00 AM Administered DTaP (younger than 7 yrs) 01/20/2006 12:00:00 AM Administered Hep B (ped/adol, 3 dose) 06/23/2006 12:00:00 AM Administered Hep B (ped/adol, 3 dose) 2005 12:00:00 AM Administered Hep B (ped/adol, 3 dose) 2005 12:00:00 AM Administered MMR 10/11/2009 12:00:00 AM Administered Varicella 10/11/2009 12:00:00 AM Administered MMR 12/15/2006 12:00:00 AM Administered Varicella 09/15/2006 12:00:00 AM Administered Hep A (ped/adol, 2 dose) 10/08/2013 12:00:00 AM Administered Hep A (ped/adol, 2 dose) 02/25/2013 12:00:00 AM The [facility], [facility] and [facility] complies with applicable Federal civil rights laws and does not discriminate on the basis of race, color, national origin, age, disability, or sex. * Quang Neville MD - 04/25/2019 10:45 AM EDT The [address] [address] [email or web address] Patient: Yaya Pisano MR#: [id number] Date of Visit: 04/25/2019 10:45 AM : 2005 Visit Type: Well child Age: 13 years 7 months Rendering Physician: Quang Neville MD Gender: Male Primary Care Provider: Quang Neville MD Historian: Mother INTAKE NOTE Intake Comments: Well exam Doing well, No concerns History of Present Illness This 13 year 7 month old male presents for Well child. 1. Well child Doing well, no concerns. Review of Systems System Neg/Pos Details Constitutional [...] allergies. Reproductive Negative Penile discharge. Vital Signs Height: Ht ft Ht in Ht cm % Height Position Measured 5.0 5.00 165.10 69.7 05/28/2018 Weight/BSA/BMI: Wt lb Wt oz Wt kg Wt % Context BMI kg/m2 BMI % BSA m2 112.80 51.165 58.9 18.77 48 Blood Pressure: BP mm/Hg Position Side Site Method Cuff Size 116/50 Date Time Measured by 04/25/2019 10:44 AM Natalya Galindo MA 04/25/2019 10:44 AM Natalya Galindo MA Allergies: No known allergies. Medication Ingredient Reaction Comment Intolerance NO KNOWN ALLERGIES N Past Medical/Surgical History 10/25/2017 Disease/Disorder Onset Management Date dental exam 11/2014 [facility] 12/2014 school DDS March [address] Mendez dentist December 2015 [facility] 2018 office Family History 10/25/2017 Social History: 10/25/2017 Demographics: Preferred language is Sierra Leonean. Document generated by: Natalya Galindo MA 04/25/2019 documented in this encounter Plan of Treatment Not on file documented as of this encounter Visit Diagnoses Not on filedocumented in this encounter Care Teams Riprap Placing Supervisor Relationship Specialty Start Date End Date Quang Neville MD [address] [place] [address] PCP - General Pediatrics 11/10/22 documented as of this encounter
--- OUTSIDE RECORDS SUMMARY | 2025-07-04 22:24 | XMS_ITS | Encounter Summary ---
Author Organization [facility] Address [address] [place] [address] Care Team Providers Care Industrial Workers Name Role Phone Quang Neville MD Primary Care Provider [phone] Encounter Details Date Type Department Care Team ([facility] st Contact Info) Description 06/02/2016 Duly Conversion Encounter Pediatrics - [address] 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 [place] [place] [place] [address] - [email or web address] [email or web address] MESSAGE Rendering MD: Quang Neville MD Patient Name: Yaya Pisano Age: 10 Years MR#: [id number] : 2005 Date of Call: 06/02/2016 Encounter Date: 06/02/2016 4:49 PM Time of Call: 4:49 PM Staffer: Mimi Chan Work Phone: Alt. Phone: Preferred Pharmacy: Spoke with: (father) Rupert. Activities Date Time Employee Activity 06/03/2016 10:58:52 Sejal Mendosa MA Form with Dr Neville to sign, will put at lead front end developer. 06/02/2016 16:50:48 Mimi Dustin Dad dropped off form for school to be filled out. Last WCE on 01/09/16 Will case picker. Call Disposition Telephone Call is completed. Completed 06/03/2016 at 10:58 AM by Sejal Mendosa MA Task History Date Time User Task History 06/03/2016 10:58 AM Sejal Mendosa MA TELEPHONE MESSAGE Marked As Complete documented in this encounter Plan of Treatment Not on file documented as of this encounter Visit Diagnoses Not on filedocumented in this encounter Care Teams Industrial Workers Relationship Specialty Start Date End Date Quang Neville MD [address] [place] [address] PCP - General Pediatrics 11/10/22 documented as of this encounter
--- OUTSIDE RECORDS SUMMARY | 2025-07-04 22:25 | XMS_ITS | Encounter Summary ---
Author Organization [facility] and Care Address [address] [place] [id number] Care Team Providers Care Anode Builder Name Role Phone Quang Neville MD Primary Care Provider [phone] Encounter Details Date Type Department Care Team ([facility] st Contact Info) Description 01/09/2016 Duly Conversion Encounter Pediatrics - [address] [facility] [address] [facility] [place] [address] Quang Neville MD [address] [facility] [place] [address] (Ibjm) Social History Tobacco Use Types Packs/Day Years Used Date Smoking Tobacco: Never Assessed Sex and Gender Information Value Date Recorded Sex Assigned at Male 09/24/2022 4:59 PM 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 Legal Sex Male 4:59 PM 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 Assessment Encntr for routine child health exam w/o abnormal findings (Z00.129). Patient Plan Anticipatory guidance given regarding school, development and mental health, nutritionand physical activity, oral health and safety. Intake Comments Pt c/o left knee pain earlier in the month but it's gone now. No injury and not in sports 2)Check jj on his left cheek--it's been there for years History of Present Illness This 10 year 3 month old male presents for well visit. 1. well visit Doing well Complained of left knee/ leg pain some time ago, but not for the past 2-3 weeks. 4th grade at [employer] Review of Systems System Neg/Pos Details [...] Allergic/Immuno Negative Environmental allergies and food allergies. Reproductive Negative Vaginal discharge. Vital Signs BP mm/hg Pulse min Resp min Temp f Ht (ft) Ht (in) Ht (cm) Ht % Wt (lb) Wt (oz) Wt % BMI kg/m2 BSA m2 O2 Sat% 92/66 4.0 9.25 145.41 77 82.80 73 17.76 Date Time Measured by 01/09/2016 1:44 PM [employer] Physical Exam Exam Findings Details Constitutional Normal [...] person and situation Behavior appropriate for age. Social History (Detailed) 01/09/2016 General: Preferred language is Luxembourgish. 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 Water is chlorinated. Water is fluoridated. Dental Care: Last dental visit was 11/13/2014. .. Safety: The patient uses bike/skating helmet. Uses seat belts. The home has smoke detectors. Carbonmonoxide detector at home. The home has been treated for radon gas. No firearms at home. There is not a pool or spa at home. He/she does not have pets at home. Education: Attends [employer]. Grade level in school is fourth grade. Nutrition History Diet :Patient has an adequate varied diet. Concerns regarding patients nutrition include: 2%. Medications (Reconciled/Reviewed) Patient is on no medications. Allergies No known allergies. Medication Ingredient Reaction Comment Intolerance NO KNOWN ALLERGIES N Document generated by: Quang Neville MD 01/09/2016 07:16 PM * Quang Neville MD - 01/09/2016 1:48 PM EDT [facility] [address] [facility] [place] [place] [address] [email or web address] Patient: Yaya Pisano MR#: [id number] Date of Visit: 01/09/2016 1:40 PM : 2005 Visit Type: Well child Age: 10 years 3 months Rendering Physician: Quang Neville MD Gender: Male Primary Care Provider: Quang Neville MD Historian: mother Intake Comments Pt c/o left knee pain earlier in the month but it's gone now. No injury and not in sports 2)Check jj on his left cheek--it's been there for years History of Present Illness This 10 year 3 month old male presents for Well Visit. 1. Well Visit Vital Signs Height: Ht ft Ht in Ht cm % Height Position Measured 4.0 9.25 145.41 77 01/11/2015 Weight/BSA/BMI: Wt lb Wt oz Wt kg Wt % Context BMI kg/m2 BMI % BSA m2 82.80 37.557 73 dressed without shoes 17.76 66 Blood Pressure: BP mm/Hg Position Side Site Method Cuff Size 92/66 Date Time Measured by 01/09/2016 1:44 PM Judy Jones Medications (Reconciled/Reviewed) Patient is on no medications. Allergies No known allergies. Medication Ingredient Reaction Comment Intolerance NO KNOWN ALLERGIES N Past Medical/Surgical History Disease/Disorder Onset Management Date dental exam 11/2014 vision 12/[address] Mendez dentist December 2015 Document generated by: Judy Jones 01/09/2016 documented in this encounter Plan of Treatment Not on file documented as of this encounter Visit Diagnoses Not on filedocumented in this encounter Care Teams Anode Builder Relationship Specialty Start Date End Date Quang Neville MD [address] [place] [id number] PCP - General Pediatrics 11/10/22 documented as of this encounter
[2025-07-04 22:34] LABS: Appearance Urine Clear (Clear)
[2025-07-05] VITALS: O2SAT 97
== END 2025-07-05 00:44 | disposition home or self-care (01) ==
PROVIDERS: Emergency Provider Family Medicine
DX: S02.612A Fracture of condylar process of left mandible, initial encounter for closed fracture (principal); S02.5XXA Fracture of tooth (traumatic), initial encounter for closed fracture; S01.81XA Laceration without foreign body of other part of head, initial encounter; S80.211A Abrasion, right knee, initial encounter; V19.3XXA Pedal cyclist (driver) (passenger) injured in unspecified nontraffic accident, initial encounter
CPT/HCPCS: 12011; 70486; 76705; 81001; 99284; 99291